=== PATIENT | female | born 1965 | race Caucasian/White ===

== ENCOUNTER 2023-04-29 13:58 | Emergency (ER) | payer OTHER ==
[~2023-04-29] VITALS: Ht 157.5 cm; Wt 83.9 kg
[2023-04-29 14:13] VITALS: BP 155/98; PULSE 70; RESP 18; TEMP 97.6; O2SAT 97
[2023-04-29 14:30] VITALS: O2SAT 97
[2023-04-29] MEDS ORDERED: ONDANSETRON 4 MG ODT PO ONE (14:40)
[2023-04-29 15:26] LABS: BASOPHILS # (AUTO) 0.1 K/uL (0.00-0.22); BASOPHILS % (AUTO) 0.9 % (0.0-2.0); EOSINOPHILS # (AUTO) 0.1 K/uL (0-0.4); EOSINOPHILS % (AUTO) 1.7 % (0.0-4.0); HEMATOCRIT 26.4 % (36-48); LYMPHOCYTES # (AUTO) 1.7 K/uL (2.5-16.5); LYMPHOCYTES % (AUTO) 27.2 % (20.5-51.1); MEAN CORPUSCULAR HEMOGLOBIN 30 pg (27-31); MEAN CORPUSCULAR HGB CONC 34 g/dL (33-37); MEAN CORPUSCULAR VOLUME 89.1 fL (80-94); MONOCYTES # (AUTO) 0.3 K/uL (0.8-1.0); MONOCYTES % (AUTO) 4.9 % (1.7-9.3); NEUTROPHILS # (AUTO) 4.2 K/uL (1.8-7.7); NEUTROPHILS % (AUTO) 65.3 % (42.2-75.2); PLATELET COUNT (AUTO) 356 K/uL (140-450); RED BLOOD CELL COUNT(AUTO) 2.96 MIL/uL (4.20-5.40); WHITE BLOOD COUNT (AUTO) 6.4 K/uL (4.8-10.8)
[2023-04-29] MEDS ORDERED: ONDANSETRON 4 MG TAB ONE (15:47)
[2023-04-29] MEDS ORDERED: DICYCLOMINE 10 MG CAP PO ONE (16:15)
[2023-04-29 16:55] VITALS: O2SAT 98
[2023-04-29 18:31] LABS: LACTIC ACID 0.7 mmol/L (0.4-2.0)
[2023-04-29 19:00] LABS: APPEARANCE,URINE CLEAR (CLEAR); BILIRUBIN,URINE NEGATIVE (NEGATIVE); BLOOD, URINE 1+ (NEGATIVE); COLOR,URINE YELLOW (YELLOW); LEUKOCYTE ESTERASE ,URINE 1+ (NEGATIVE); NITRITE, URINE NEGATIVE (NEGATIVE); PH,URINE 7.5 (5.0-9.0); PROTEIN,URINE 3+ (NEGATIVE); UGLUCOSE 2+ (NEGATIVE); UROBILINOGEN,URINE 0.2 EU/dL (0.2 - 1)
[2023-04-29 19:06] LABS: POTASSIUM 4.5 mmol/L (3.5-5.1)
[2023-04-29 19:07] LABS: ANION GAP 18.7 (8-16); CARBON DIOXIDE 26.8 mmol/L (21-32)
[2023-04-29 19:09] LABS: CREATININE 4.1 mg/dL (0.6-1.3)
[2023-04-29 19:10] LABS: TOTAL BILIRUBIN 0.3 mg/dL (0.0-1.0)
[2023-04-29 19:12] LABS: CALCIUM 7.7 mg/dL (8.5-10.1); TOTAL PROTEIN, SERUM 5.2 g/dL (6.4-8.2)
[2023-04-29 19:47] LABS: BACTERIA,URINE FEW /HPF (None Seen); MUCUS,URINE None Seen /LPF (None Seen); SQUAMOUS EPITHELIAL CELL,UR 0-3 (FEW) /LPF (0-3 (FEW)); TRICHOMONAS,URINE None Seen /HPF (None Seen); WHITE BLOOD CELL CASTS,URINE None Seen /LPF (None Seen); YEAST,URINE None Seen /HPF (None Seen)
[2023-04-29] MEDS ORDERED: TETRACAINE HCL/PF 0.5% OPTH 4 ML BTL OP ONE (20:20)
[2023-04-29] MEDS ORDERED: FLUORESCEIN OPTH STRIP 1 MG OP ONE (20:20)
[2023-04-29] MEDS ORDERED: TOMOMETER 1 DEV DEV MC ONE (21:02)
[2023-04-29] MEDS ORDERED: ACET-10509 PO (21:14)
[2023-04-29] MEDS ORDERED: NITR100C7 PO (21:14)
[2023-04-29] MEDS ORDERED: TOBR5DRO10 RIGHT EYE (21:14)
[2023-04-29 23:29] VITALS: TEMP 97.6
[2023-04-30 07:00] VITALS: BP 143/64; PULSE 78; RESP 18; O2SAT 99
== END 2023-04-29 21:20 | disposition home or self-care (01) ==
LOC: MED 13:58
DX: N39.0 Urinary tract infection, site not specified (principal); H10.9 Unspecified conjunctivitis; E11.22 Type 2 diabetes mellitus with diabetic chronic kidney disease; I12.0 Hypertensive chronic kidney disease with stage 5 chronic kidney disease or end stage renal disease; N18.6 End stage renal disease; Z99.2 Dependence on renal dialysis
CPT/HCPCS: 36415; 71045; 74176; 80053; 81001; 83605; 83880; 84484; 85025; 87040; 87086; 93005; 99285; Q0092; Q0162

== ENCOUNTER 2023-05-09 18:15 | Emergency (ER) | payer OTHER ==
[~2023-05-09] VITALS: Ht 157.5 cm; Wt 65.8 kg
[~2023-05-09 18:15] MED LIST: ACET-10509 PO; NITR100C7 PO; TOBR5DRO10 RIGHT EYE
[2023-05-09 18:42] VITALS: BP 143/99; PULSE 74; RESP 17; TEMP 97.4; O2SAT 98
[2023-05-09] MEDS ORDERED: MORPHINE SULFATE 4 MG/ML SYR IM ONE (19:35)
[2023-05-09 20:03] LABS: BASOPHILS % (AUTO) 0.7 % (0.0-2.0); EOSINOPHILS # (AUTO) 0.2 K/uL (0-0.4); EOSINOPHILS % (AUTO) 3.4 % (0.0-4.0); HEMATOCRIT 25.5 % (36-48); HEMOGLOBIN 8.8 g/dL (12.0-16.0); LYMPHOCYTES # (AUTO) 1.4 K/uL (2.5-16.5); LYMPHOCYTES % (AUTO) 24.5 % (20.5-51.1); MEAN CORPUSCULAR HEMOGLOBIN 31 pg (27-31); MEAN CORPUSCULAR HGB CONC 35 g/dL (33-37); MEAN CORPUSCULAR VOLUME 89.1 fL (80-94); MONOCYTES # (AUTO) 0.3 K/uL (0.8-1.0); MONOCYTES % (AUTO) 5.5 % (1.7-9.3); NEUTROPHILS # (AUTO) 3.7 K/uL (1.8-7.7); NEUTROPHILS % (AUTO) 65.9 % (42.2-75.2); PLATELET COUNT (AUTO) 367 K/uL (140-450); RED BLOOD CELL COUNT(AUTO) 2.86 MIL/uL (4.20-5.40); WHITE BLOOD COUNT (AUTO) 5.6 K/uL (4.8-10.8)
[2023-05-09 20:29] LABS: ALBUMIN 1.9 g/dL (3.4-5.0); ANION GAP 14.6 (8-16); CARBON DIOXIDE 25.1 mmol/L (21-32); POTASSIUM 4.7 mmol/L (3.5-5.1); TOTAL BILIRUBIN 0.3 mg/dL (0.0-1.0); TOTAL PROTEIN, SERUM 4.7 g/dL (6.4-8.2)
[2023-05-09 20:40] LABS: CREATININE 5.5 mg/dL (0.6-1.3)
[2023-05-09] MEDS ORDERED: CETI10CA17 PO (21:49)
[2023-05-09] MEDS ORDERED: PROP10DR4 OP (21:49)
[2023-05-09] MEDS ORDERED: BISM262C53 PO (21:49)
[2023-05-09 22:22] VITALS: BP 134/74; PULSE 70; RESP 18; TEMP 97.4; O2SAT 99
== END 2023-05-09 22:22 | disposition home or self-care (01) ==
LOC: MED 18:15
DX: H10.12 Acute atopic conjunctivitis, left eye (principal); R10.11 Right upper quadrant pain; I12.0 Hypertensive chronic kidney disease with stage 5 chronic kidney disease or end stage renal disease; E11.22 Type 2 diabetes mellitus with diabetic chronic kidney disease; N18.6 End stage renal disease; Z99.2 Dependence on renal dialysis; Z79.4 Long term (current) use of insulin; Z79.899 Other long term (current) drug therapy
CPT/HCPCS: 36415; 70486; 71045; 76705; 80053; 83690; 83880; 85025; 96374; 99285; J2270; Q0092

== ENCOUNTER 2023-05-14 07:48 | Emergency (ER) | payer OTHER ==
[~2023-05-14] VITALS: Ht 160 cm; Wt 79.4 kg
[~2023-05-14 07:48] MED LIST changes: +BISM262C53 PO; +CETI10CA17 PO; +PROP10DR4 OP
[2023-05-14 07:49] VITALS: BP 197/77; PULSE 82; RESP 16; TEMP 97.6; O2SAT 98
[2023-05-14 07:55] VITALS: O2SAT 98
[2023-05-14] MEDS ORDERED: KETOROLAC 60 MG/2 ML VIAL IM ONE (08:15)
[2023-05-14] MEDS ORDERED: ONDANSETRON 4 MG ODT PO ONE (09:15)
[2023-05-14] MEDS ORDERED: MORPHINE SULFATE 4 MG/ML SYR IM ONE ×2 (09:15→12:50)
[2023-05-14 10:01] VITALS: O2SAT 98
[2023-05-14] MEDS ORDERED: LOPE-289 PO (10:27)
[2023-05-14] MEDS ORDERED: CIPR500T4 PO (10:27)
[2023-05-14] MEDS ORDERED: ONDA8TAB87 PO (10:27)
[2023-05-14] MEDS ORDERED: ACET-8905 PO (10:27)
[2023-05-14] MEDS ORDERED: ENALAPRIL 10 MG TAB PO ONE (11:25)
[2023-05-14 12:01] VITALS: O2SAT 98
[2023-05-14 12:59] VITALS: TEMP 97.6
[2023-05-14 13:45] VITALS: BP 170/84; PULSE 72; RESP 16; O2SAT 94
== END 2023-05-14 13:45 | disposition home or self-care (01) ==
LOC: MED 07:48
DX: H57.12 Ocular pain, left eye (principal); R11.2 Nausea with vomiting, unspecified; R10.13 Epigastric pain; R19.7 Diarrhea, unspecified; E11.22 Type 2 diabetes mellitus with diabetic chronic kidney disease; I12.0 Hypertensive chronic kidney disease with stage 5 chronic kidney disease or end stage renal disease; N18.6 End stage renal disease; Z99.2 Dependence on renal dialysis; Z90.49 Acquired absence of other specified parts of digestive tract; Z98.890 Other specified postprocedural states
CPT/HCPCS: 96372; 99284; J1885; J2270; Q0162

== ENCOUNTER 2023-05-19 14:02 | Emergency (ER) | payer OTHER ==
[~2023-05-19] VITALS: Ht 160 cm; Wt 74.8 kg
[~2023-05-19 14:02] MED LIST changes: +ACET-8905 PO; +CIPR500T4 PO; +LOPE-289 PO; +ONDA8TAB87 PO
[2023-05-19 14:13] VITALS: BP 113/57; PULSE 81; RESP 15; TEMP 98.1; O2SAT 91
[2023-05-19 15:19] LABS: BASOPHILS # (AUTO) 0.1 K/uL (0.00-0.22); BASOPHILS % (AUTO) 0.7 % (0.0-2.0); EOSINOPHILS # (AUTO) 0.2 K/uL (0-0.4); EOSINOPHILS % (AUTO) 2.4 % (0.0-4.0); HEMOGLOBIN 9.4 g/dL (12.0-16.0); LYMPHOCYTES # (AUTO) 1.4 K/uL (2.5-16.5); LYMPHOCYTES % (AUTO) 18.6 % (20.5-51.1); MEAN CORPUSCULAR HEMOGLOBIN 30 pg (27-31); MEAN CORPUSCULAR HGB CONC 34 g/dL (33-37); MEAN CORPUSCULAR VOLUME 89.7 fL (80-94); MONOCYTES # (AUTO) 0.4 K/uL (0.8-1.0); MONOCYTES % (AUTO) 5.3 % (1.7-9.3); NEUTROPHILS # (AUTO) 5.6 K/uL (1.8-7.7); PLATELET COUNT (AUTO) 344 K/uL (140-450); RED BLOOD CELL COUNT(AUTO) 3.12 MIL/uL (4.20-5.40); WHITE BLOOD COUNT (AUTO) 7.7 K/uL (4.8-10.8)
[2023-05-19] MEDS ORDERED: HYDROcodone/APAP 5/325 MG 1 TAB TAB PO ONE (15:30)
[2023-05-19 15:35] LABS: ALBUMIN 1.8 g/dL (3.4-5.0); ANION GAP 12.4 (8-16); CALCIUM 7.2 mg/dL (8.5-10.1); CARBON DIOXIDE 29.6 mmol/L (21-32); TOTAL BILIRUBIN 0.3 mg/dL (0.0-1.0); TOTAL PROTEIN, SERUM 4.7 g/dL (6.4-8.2)
[2023-05-19 15:44] LABS: CREATININE 4.3 mg/dL (0.6-1.3)
[2023-05-19] MEDS ORDERED: ACET-9527 PO (15:57)
[2023-05-19] MEDS ORDERED: CILOS LEFT EYE (15:57)
[2023-05-19 16:27] VITALS: BP 120/57; PULSE 68; RESP 16; O2SAT 91
[2023-05-19] MEDS ORDERED: MORPHINE SULFATE 4 MG/ML SYR IM ONE (16:40)
== END 2023-05-19 16:31 ==
LOC: MED 14:02
DX: H05.221 Edema of right orbit (principal); H10.9 Unspecified conjunctivitis; E11.22 Type 2 diabetes mellitus with diabetic chronic kidney disease; I12.0 Hypertensive chronic kidney disease with stage 5 chronic kidney disease or end stage renal disease; N18.6 End stage renal disease; J44.9 Chronic obstructive pulmonary disease, unspecified; E78.5 Hyperlipidemia, unspecified; Z99.2 Dependence on renal dialysis; Z79.899 Other long term (current) drug therapy
CPT/HCPCS: 36415; 71045; 80053; 83690; 83880; 85025; 99284; Q0092

== ENCOUNTER 2023-05-24 17:57 | Emergency (ER) | payer OTHER ==
[~2023-05-24] VITALS: Ht 157.5 cm; Wt 72.6 kg
[~2023-05-24 17:57] MED LIST changes: +ACET-9527 PO; +CILOS LEFT EYE
[2023-05-24 18:22] VITALS: BP 175/85; PULSE 85; RESP 18; TEMP 98.7; O2SAT 98
[2023-05-24] MEDS ORDERED: ONDANSETRON 4 MG/2 ML VIAL IVP ONE (18:35)
[2023-05-24] MEDS ORDERED: MORPHINE SULFATE 4 MG/ML SYR IVP ONE (18:35)
[2023-05-24 19:06] LABS: BASOPHILS # (AUTO) 0.1 K/uL (0.00-0.22); BASOPHILS % (AUTO) 1.1 % (0.0-2.0); EOSINOPHILS # (AUTO) 0.1 K/uL (0-0.4); EOSINOPHILS % (AUTO) 2.4 % (0.0-4.0); HEMATOCRIT 30.5 % (36-48); HEMOGLOBIN 10.5 g/dL (12.0-16.0); LYMPHOCYTES # (AUTO) 1.9 K/uL (2.5-16.5); MEAN CORPUSCULAR HEMOGLOBIN 30 pg (27-31); MEAN CORPUSCULAR HGB CONC 34 g/dL (33-37); MEAN CORPUSCULAR VOLUME 88.5 fL (80-94); MONOCYTES # (AUTO) 0.3 K/uL (0.8-1.0); MONOCYTES % (AUTO) 5.5 % (1.7-9.3); NEUTROPHILS # (AUTO) 3.8 K/uL (1.8-7.7); PLATELET COUNT (AUTO) 405 K/uL (140-450); RED BLOOD CELL COUNT(AUTO) 3.45 MIL/uL (4.20-5.40); RED CELL DISTRIBUTION WIDTH 15.4 % (11.6-13.7); WHITE BLOOD COUNT (AUTO) 6.2 K/uL (4.8-10.8)
[2023-05-24 19:24] VITALS: BP 175/75; PULSE 83; RESP 18; TEMP 98.7; O2SAT 98
[2023-05-24 19:28] LABS: ALBUMIN 2.1 g/dL (3.4-5.0); ANION GAP 11.3 (8-16); CALCIUM 8.1 mg/dL (8.5-10.1); CARBON DIOXIDE 28.4 mmol/L (21-32); CREATININE 2.6 mg/dL (0.6-1.3); POTASSIUM 3.7 mmol/L (3.5-5.1); TOTAL BILIRUBIN 0.4 mg/dL (0.0-1.0); TOTAL PROTEIN, SERUM 5.2 g/dL (6.4-8.2)
[2023-05-24] MEDS ORDERED: ACET-8905 PO (20:29)
== END 2023-05-24 23:21 | disposition home or self-care (01) ==
LOC: MED 17:57
DX: E11.22 Type 2 diabetes mellitus with diabetic chronic kidney disease (principal); I12.0 Hypertensive chronic kidney disease with stage 5 chronic kidney disease or end stage renal disease; N18.6 End stage renal disease; R10.9 Unspecified abdominal pain; Z99.2 Dependence on renal dialysis; J44.9 Chronic obstructive pulmonary disease, unspecified; Z98.890 Other specified postprocedural states; Z79.899 Other long term (current) drug therapy; Z79.2 Long term (current) use of antibiotics
CPT/HCPCS: 36415; 71045; 80053; 83690; 85025; 93005; 96374; 96375; 99285; J2270; J2405

== ENCOUNTER 2023-06-21 19:20 | Emergency (ER) | payer OTHER ==
[~2023-06-21] VITALS: Ht 152.4 cm; Wt 68.0 kg
[2023-06-21 19:24] VITALS: BP 138/69; PULSE 81; RESP 16; TEMP 97.4; O2SAT 97
[2023-06-21 20:30] LABS: BASOPHILS # (AUTO) 0.1 K/uL (0.00-0.22); EOSINOPHILS # (AUTO) 0.1 K/uL (0-0.4); EOSINOPHILS % (AUTO) 1.7 % (0.0-4.0); HEMATOCRIT 35.8 % (36-48); HEMOGLOBIN 12.2 g/dL (12.0-16.0); LYMPHOCYTES % (AUTO) 36.2 % (20.5-51.1); MEAN CORPUSCULAR HEMOGLOBIN 31 pg (27-31); MEAN CORPUSCULAR HGB CONC 34 g/dL (33-37); MEAN CORPUSCULAR VOLUME 89.8 fL (80-94); MONOCYTES # (AUTO) 0.3 K/uL (0.8-1.0); MONOCYTES % (AUTO) 5.6 % (1.7-9.3); NEUTROPHILS % (AUTO) 55.5 % (42.2-75.2); PLATELET COUNT (AUTO) 358 K/uL (140-450); RED BLOOD CELL COUNT(AUTO) 3.99 MIL/uL (4.20-5.40); RED CELL DISTRIBUTION WIDTH 16.1 % (11.6-13.7); WHITE BLOOD COUNT (AUTO) 5.4 K/uL (4.8-10.8)
[2023-06-21 20:42] LABS: ALBUMIN 1.9 g/dL (3.4-5.0); ANION GAP 9.1 (8-16); CALCIUM 7.3 mg/dL (8.5-10.1); CARBON DIOXIDE 33.2 mmol/L (21-32); CREATININE 2.6 mg/dL (0.6-1.3); POTASSIUM 3.3 mmol/L (3.5-5.1); TOTAL BILIRUBIN 0.4 mg/dL (0.0-1.0); TOTAL PROTEIN, SERUM 4.7 g/dL (6.4-8.2)
[2023-06-21] MEDS ORDERED: SULF-59 PO (22:48)
[2023-06-21] MEDS ORDERED: CEFD300C3 PO (22:48)
[2023-06-22 00:15] VITALS: BP 138/70; PULSE 80; RESP 16; TEMP 97.4; O2SAT 95
== END 2023-06-22 00:15 | disposition home or self-care (01) ==
LOC: MED 19:20
DX: H00.034 Abscess of left upper eyelid (principal); I12.0 Hypertensive chronic kidney disease with stage 5 chronic kidney disease or end stage renal disease; E11.22 Type 2 diabetes mellitus with diabetic chronic kidney disease; N18.6 End stage renal disease; J44.9 Chronic obstructive pulmonary disease, unspecified; Z79.4 Long term (current) use of insulin; Z79.899 Other long term (current) drug therapy
CPT/HCPCS: 36415; 70481; 80053; 83605; 85025; 87040; 99285; Q9967

== ENCOUNTER 2023-06-27 20:20 | Inpatient (IN) | payer OTHER ==
[~2023-06-27] VITALS: Ht 152.4 cm; Wt 57.6 kg
[~2023-06-27 20:20] MED LIST changes: +CEFD300C3 PO; +SULF-59 PO
[2023-06-27 20:30] VITALS: BP 144/94; PULSE 92; RESP 16; TEMP 97.7; O2SAT 95
[2023-06-27] MEDS ORDERED: DEXTROSE 50% 50 ML SYR IVP ONE (20:42)
[2023-06-27 21:17] LABS: BASOPHILS # (AUTO) 0.1 K/uL (0.00-0.22); BASOPHILS % (AUTO) 1.3 % (0.0-2.0); EOSINOPHILS # (AUTO) 0.1 K/uL (0-0.4); EOSINOPHILS % (AUTO) 1.5 % (0.0-4.0); HEMATOCRIT 36.2 % (36-48); HEMOGLOBIN 12.3 g/dL (12.0-16.0); LYMPHOCYTES # (AUTO) 1.5 K/uL (2.5-16.5); LYMPHOCYTES % (AUTO) 35.2 % (20.5-51.1); MEAN CORPUSCULAR HEMOGLOBIN 30 pg (27-31); MEAN CORPUSCULAR HGB CONC 34 g/dL (33-37); MEAN CORPUSCULAR VOLUME 89.4 fL (80-94); MONOCYTES # (AUTO) 0.2 K/uL (0.8-1.0); MONOCYTES % (AUTO) 5.9 % (1.7-9.3); NEUTROPHILS # (AUTO) 2.4 K/uL (1.8-7.7); NEUTROPHILS % (AUTO) 56.1 % (42.2-75.2); PLATELET COUNT (AUTO) 337 K/uL (140-450); RED BLOOD CELL COUNT(AUTO) 4.05 MIL/uL (4.20-5.40); RED CELL DISTRIBUTION WIDTH 15.3 % (11.6-13.7); WHITE BLOOD COUNT (AUTO) 4.2 K/uL (4.8-10.8)
[2023-06-27 21:40] LABS: ALANINE AMINOTRANSFERASE 9 U/L (12-78); ALBUMIN 1.7 g/dL (3.4-5.0); ALKALINE PHOSPHATASE 83 U/L (50-136); ANION GAP 10.5 (8-16); ASPARTATE AMINOTRANSFERASE 18 U/L (15-37); CALCIUM 7.6 mg/dL (8.5-10.1); CARBON DIOXIDE 32.5 mmol/L (21-32); CHLORIDE 103 mmol/L (98-107); GFR ARICAN-AMERICAN 33 mL/min (>90); GFR NON ARICAN-AMERICAN 27 mL/min (>90); GLUCOSE 55 mg/dL (74-106); MAGNESIUM 1.7 mg/dL (1.8-2.4); PHOSPHORUS 2.3 mg/dL (2.5-4.9); SODIUM SERUM 143 mmol/L (136-145); TOTAL BILIRUBIN 0.5 mg/dL (0.0-1.0); TOTAL PROTEIN, SERUM 4.5 g/dL (6.4-8.2); UREA NITROGEN, BLOOD 9 mg/dL (7-18)
[2023-06-28 00:01] LABS: FLU A ANTIGEN negative (NEGATIVE); FLU B ANTIGEN NEGATIVE (NEGATIVE)
[2023-06-28] MEDS ORDERED: ACETAMINOPHEN EXTRA STRENGTH 500 MG TAB PO ONE (00:10)
[2023-06-28 00:24] LABS: APPEARANCE,URINE CLOUDY (CLEAR); BILIRUBIN,URINE NEGATIVE (NEGATIVE); BLOOD, URINE 1+ (NEGATIVE); COLOR,URINE YELLOW (YELLOW); LEUKOCYTE ESTERASE ,URINE 1+ (NEGATIVE); NITRITE, URINE NEGATIVE (NEGATIVE); PH,URINE 7.5 (5.0-9.0); PROTEIN,URINE 3+ (NEGATIVE); UGLUCOSE NEGATIVE (NEGATIVE); UROBILINOGEN,URINE 0.2 EU/dL (0.2 - 1)
[2023-06-28 00:30] LABS: WBC,URINE TOO MANY TO COUNT /HPF (0-5)
[2023-06-28 00:31] LABS: BACTERIA,URINE >30 (MANY) /HPF (None Seen); MUCUS,URINE 1+ /LPF (None Seen); SQUAMOUS EPITHELIAL CELL,UR 0-3 (FEW) /LPF (0-3 (FEW))
[2023-06-28] MEDS ORDERED: ZOLPIDEM 5 MG TAB PO PRN (01:20)
[2023-06-28] MEDS ORDERED: MAG SULF 2000 MG/WATER PREMIX 50 ML IV PRN (01:20)
[2023-06-28] MEDS ORDERED: HYDROcodone/APAP 5/325 MG 1 TAB TAB PO PRN (01:20)
[2023-06-28] MEDS ORDERED: POTASSIUM CHLORIDE 10 MEQ TABER PO PRN (01:20)
[2023-06-28] MEDS ORDERED: LORazepam 1 MG TAB PO PRN (01:20)
[2023-06-28] MEDS ORDERED: MORPHINE SULFATE 4 MG/ML SYR IVP PRN (01:20)
[2023-06-28] MEDS ORDERED: ONDANSETRON 4 MG/2 ML VIAL IVP PRN (01:20)
[2023-06-28] MEDS ORDERED: cefTRIAXone 1,000 MG VIAL ONE (01:30)
[2023-06-28] MEDS ORDERED: KCL 20 MEQ IN 100 mL PREMIX 200 ML IV ONE (02:04)
[2023-06-28] MEDS: KCL 20 MEQ IN 100 mL PREMIX 200 ML IV PRN ×2 (02:27→05:51)
[2023-06-28 03:20] VITALS: PULSE 83; RESP 18; O2SAT 96
[2023-06-28 04:00] VITALS: BP 147/84; PULSE 83; RESP 18; TEMP 97.9; O2SAT 96
[2023-06-28] MEDS: NACL 0.9% 1,000 ML IV SCH ×2 (04:25→17:06)
[2023-06-28 08:15] VITALS: BP 193/98; PULSE 89; RESP 18; TEMP 98.6; O2SAT 98
[2023-06-28] MEDS: hydrALAZINE 20 MG/ML VIAL IVP PRN ×4 (11:44→17:25)
[2023-06-28 15:33] LABS: ANION GAP 10.9 (8-16); CALCIUM 7.5 mg/dL (8.5-10.1); CARBON DIOXIDE 29.8 mmol/L (21-32); CREATININE 2.7 mg/dL (0.6-1.3); POTASSIUM 3.7 mmol/L (3.5-5.1)
[2023-06-28 16:00] VITALS: BP 209/108; PULSE 69; RESP 18; TEMP 97.3; O2SAT 96
[2023-06-28 20:00] VITALS: BP 199/102; PULSE 95; RESP 18; TEMP 97.5; O2SAT 96
[2023-06-28] MEDS ORDERED: hydrALAZINE 20 MG/ML VIAL IVP PRN (20:50)
[2023-06-28] MEDS: LABETALOL 200 MG TAB PO SCH (23:28)
[2023-06-29 04:00] VITALS: BP 156/77; PULSE 99; RESP 18; TEMP 98.3; O2SAT 96
[2023-06-29] MEDS: hydrALAZINE 20 MG/ML VIAL IVP PRN (05:53)
[2023-06-29 06:46] LABS: BASOPHILS # (AUTO) 0.1 K/uL (0.00-0.22); BASOPHILS % (AUTO) 1.1 % (0.0-2.0); EOSINOPHILS # (AUTO) 0.1 K/uL (0-0.4); EOSINOPHILS % (AUTO) 1.6 % (0.0-4.0); HEMOGLOBIN 12.3 g/dL (12.0-16.0); LYMPHOCYTES # (AUTO) 1.9 K/uL (2.5-16.5); LYMPHOCYTES % (AUTO) 34.8 % (20.5-51.1); MEAN CORPUSCULAR HEMOGLOBIN 30 pg (27-31); MEAN CORPUSCULAR HGB CONC 33 g/dL (33-37); MEAN CORPUSCULAR VOLUME 89.8 fL (80-94); MONOCYTES # (AUTO) 0.4 K/uL (0.8-1.0); MONOCYTES % (AUTO) 6.7 % (1.7-9.3); NEUTROPHILS % (AUTO) 55.8 % (42.2-75.2); PLATELET COUNT (AUTO) 356 K/uL (140-450); RED BLOOD CELL COUNT(AUTO) 4.12 MIL/uL (4.20-5.40); RED CELL DISTRIBUTION WIDTH 15.7 % (11.6-13.7); WHITE BLOOD COUNT (AUTO) 5.4 K/uL (4.8-10.8)
[2023-06-29 06:57] LABS: ANION GAP 9.6 (8-16); CALCIUM 7.9 mg/dL (8.5-10.1); POTASSIUM 3.6 mmol/L (3.5-5.1)
[2023-06-29] MEDS: LABETALOL 200 MG TAB PO SCH ×2 (08:44→20:09)
[2023-06-29 09:10] VITALS: PULSE 95; RESP 18; O2SAT 96
[2023-06-29] MEDS ORDERED: DEXTROSE 50% 50 ML SYR IVP PRN (09:30)
[2023-06-29] MEDS ORDERED: INSULIN LISPRO SLIDING SCALE 100 UNITS/ML VIAL SUBQ PRN (09:30)
[2023-06-29] MEDS: BLOOD GLUCOSE MONITORING 1 DEV DEV FS SCH ×3 (11:25→20:17)
[2023-06-29 16:30] VITALS: BP 127/71; PULSE 83; RESP 18; TEMP 97.8; O2SAT 96
[2023-06-29 20:00] VITALS: BP 158/78; PULSE 96; RESP 18; TEMP 97.5; O2SAT 96
[2023-06-29] MEDS: ACETAMINOPHEN 325 MG TAB PO PRN (20:09)
[2023-06-30 04:00] VITALS: BP 161/76; PULSE 81; RESP 18; TEMP 97.8; O2SAT 96
[2023-06-30] MEDS: ACETAMINOPHEN 325 MG TAB PO PRN (04:14)
[2023-06-30] MEDS: hydrALAZINE 20 MG/ML VIAL IVP PRN (05:25)
[2023-06-30] MEDS: BLOOD GLUCOSE MONITORING 1 DEV DEV FS SCH ×3 (06:37→16:13)
[2023-06-30 06:48] LABS: EOSINOPHILS # (AUTO) 0.1 K/uL (0-0.4); EOSINOPHILS % (AUTO) 1.9 % (0.0-4.0); HEMATOCRIT 38.3 % (36-48); HEMOGLOBIN 12.8 g/dL (12.0-16.0); LYMPHOCYTES # (AUTO) 1.4 K/uL (2.5-16.5); LYMPHOCYTES % (AUTO) 33.6 % (20.5-51.1); MEAN CORPUSCULAR HEMOGLOBIN 30 pg (27-31); MEAN CORPUSCULAR HGB CONC 34 g/dL (33-37); MEAN CORPUSCULAR VOLUME 90.4 fL (80-94); MONOCYTES # (AUTO) 0.2 K/uL (0.8-1.0); MONOCYTES % (AUTO) 5.6 % (1.7-9.3); NEUTROPHILS # (AUTO) 2.5 K/uL (1.8-7.7); NEUTROPHILS % (AUTO) 57.9 % (42.2-75.2); PLATELET COUNT (AUTO) 328 K/uL (140-450); RED BLOOD CELL COUNT(AUTO) 4.23 MIL/uL (4.20-5.40); RED CELL DISTRIBUTION WIDTH 15.1 % (11.6-13.7); WHITE BLOOD COUNT (AUTO) 4.3 K/uL (4.8-10.8)
[2023-06-30 07:01] LABS: ANION GAP 10.3 (8-16); CALCIUM 7.9 mg/dL (8.5-10.1); CARBON DIOXIDE 29.3 mmol/L (21-32); CREATININE 2.7 mg/dL (0.6-1.3); POTASSIUM 3.6 mmol/L (3.5-5.1)
[2023-06-30 08:13] VITALS: BP 128/65; PULSE 92; RESP 18; TEMP 97.2; O2SAT 96; O2SAT 97
[2023-06-30] MEDS: LABETALOL 200 MG TAB PO SCH (08:37)
[2023-06-30] MEDS ORDERED: MAG SULF 2000 MG/WATER PREMIX 50 ML IV SCH (09:00)
[2023-06-30 15:37] VITALS: BP 143/73; PULSE 80; RESP 18; TEMP 97.4; O2SAT 97
== END 2023-06-30 18:56 | DRG 199 ==
LOC: MED 20:20 → MMU 06-28 01:23 → OBSVTOIN 06-28 01:23 → MTU 06-28 01:32
PROVIDERS: ADMIT Hospitalist; ATTEND Hospitalist
DX: I16.0 Hypertensive urgency (principal); I67.4 Hypertensive encephalopathy; E44.0 Moderate protein-calorie malnutrition; E11.649 Type 2 diabetes mellitus with hypoglycemia without coma; E11.22 Type 2 diabetes mellitus with diabetic chronic kidney disease; N39.0 Urinary tract infection, site not specified; K52.9 Noninfective gastroenteritis and colitis, unspecified; Z20.822 Contact with and (suspected) exposure to COVID-19; N18.9 Chronic kidney disease, unspecified; Z79.1 Long term (current) use of non-steroidal anti-inflammatories (NSAID); Z79.899 Other long term (current) drug therapy; Z90.49 Acquired absence of other specified parts of digestive tract; Z68.24 Body mass index [BMI] 24.0-24.9, adult
CPT/HCPCS: 36415; 71045; 80048; 80053; 81001; 82948; 83036; 83735; 84100; 84484; 85025; 87081; 87086; 93005; 96374; 97116; 97163-GP; 99285; J0360; J0696; J1644; J1815; J2270; J2405; J3475; J3480; J7060

== ENCOUNTER 2023-10-20 01:30 | Inpatient (IN) | payer OTHER ==
[~2023-10-20] VITALS: Ht 162.6 cm; Wt 54.4 kg
[2023-10-20] VITALS (11 sets, daily range): BP systolic 90–186; BP diastolic 51–108; PULSE 82–137; RESP 18–22; TEMP 97–98.9; O2SAT 94–99
[2023-10-20 02:23] LABS: BASOPHILS % (AUTO) 0.6 % (0.0-2.0); EOSINOPHILS # (AUTO) 0.2 K/uL (0-0.4); EOSINOPHILS % (AUTO) 2.2 % (0.0-4.0); HEMATOCRIT 32.4 % (36-48); HEMOGLOBIN 11.1 g/dL (12.0-16.0); LYMPHOCYTES # (AUTO) 1.1 K/uL (2.5-16.5); LYMPHOCYTES % (AUTO) 15.4 % (20.5-51.1); MEAN CORPUSCULAR HEMOGLOBIN 32 pg (27-31); MEAN CORPUSCULAR HGB CONC 34 g/dL (33-37); MEAN CORPUSCULAR VOLUME 92.7 fL (80-94); MONOCYTES # (AUTO) 0.3 K/uL (0.8-1.0); MONOCYTES % (AUTO) 4.4 % (1.7-9.3); NEUTROPHILS # (AUTO) 5.5 K/uL (1.8-7.7); NEUTROPHILS % (AUTO) 77.4 % (42.2-75.2); PLATELET COUNT (AUTO) 320 K/uL (140-450); RED CELL DISTRIBUTION WIDTH 15.2 % (11.6-13.7); WHITE BLOOD COUNT (AUTO) 7.1 K/uL (4.8-10.8)
[2023-10-20] MEDS ORDERED: AZITHROMYCIN 500 MG INJ VIAL IV ONE (02:44)
[2023-10-20] MEDS ORDERED: cefTRIAXone 1,000 MG VIAL ONE (02:44)
[2023-10-20 02:53] LABS: LACTIC ACID 0.6 mmol/L (0.4-2.0)
[2023-10-20 02:59] LABS: ANION GAP 17.4 (8-16); CALCIUM 9.5 mg/dL (8.5-10.1); CARBON DIOXIDE 26.3 mmol/L (21-32); POTASSIUM 5.7 mmol/L (3.5-5.1)
[2023-10-20 03:02] LABS: ALBUMIN 2.8 g/dL (3.4-5.0); BILIRUBIN,DIRECT 0.2 mg/dL (0.0-0.3); TOTAL BILIRUBIN 0.4 mg/dL (0.0-1.0)
[2023-10-20] MEDS: ACETAMINOPHEN EXTRA STRENGTH 500 MG TAB PO ONE (03:05)
[2023-10-20] MEDS: AZITHROMYCIN 500 MG in DEXTROSE 5% 250 ML IV ONE (03:09)
[2023-10-20] MEDS: ONDANSETRON 4 MG/2 ML VIAL IVP ONE (03:29)
[2023-10-20] MEDS: NACL 0.9% 200 ML IV ONE (03:55)
[2023-10-20] MEDS: hydrALAZINE 20 MG/ML VIAL IVP ONE (04:02)
[2023-10-20] MEDS: MORPHINE SULFATE 4 MG/ML SYR IVP ONE (04:46)
[2023-10-20] MEDS: LABETALOL 20 MG/4 ML VIAL IVP ONE (04:47)
[2023-10-20] MEDS ORDERED: MORPHINE SULFATE 4 MG/ML SYR IVP PRN (05:45)
[2023-10-20] MEDS ORDERED: ONDANSETRON 4 MG/2 ML VIAL IVP PRN (05:45)
[2023-10-20] MEDS: ACETAMINOPHEN 325 MG TAB PO PRN (07:42)
[2023-10-20] MEDS ORDERED: FURO-572 PO (08:08)
[2023-10-20] MEDS ORDERED: ATOR40TA PO (08:08)
[2023-10-20] MEDS ORDERED: ONDA-188 PO (08:08)
[2023-10-20] MEDS ORDERED: CARV25TA PO (08:08)
[2023-10-20] MEDS ORDERED: BISA-28 PO (08:08)
[2023-10-20] MEDS ORDERED: BUME1TAB PO (08:08)
[2023-10-20] MEDS ORDERED: NIFE60TA39 PO (08:08)
[2023-10-20] MEDS: hydrALAZINE 25 MG TAB PO PRN (09:05)
[2023-10-20] MEDS: HYDROcodone/APAP 5/325 MG 1 TAB TAB PO PRN (10:10)
[2023-10-20] MEDS: CLONIDINE HYDROCHLORIDE 0.1 MG TAB ONE (10:31)
[2023-10-20] MEDS: diphenhydrAMINE 50 MG/ML VIAL IVP SCH (10:32)
[2023-10-20] MEDS: DIGOXIN 0.25 MG/ML AMP IV SCH ×2 (14:23→19:47)
[2023-10-20] MEDS: METOPROLOL 50 MG TAB PO SCH (14:24)
[2023-10-20] MEDS: BLOOD GLUCOSE MONITORING 1 DEV DEV FS SCH (15:55)
[2023-10-20] MEDS: INSULIN LISPRO SLIDING SCALE 100 UNITS/ML VIAL SUBQ PRN (15:55)
[2023-10-20] MEDS: DEXTROSE 50% 50 ML SYR IVP PRN (21:00)
[2023-10-20] MEDS: APIXABAN 2.5 MG TAB PO SCH (22:04)
[2023-10-20] MEDS: CLONIDINE HYDROCHLORIDE 0.1 MG TAB PO PRN (22:11)
[2023-10-21] VITALS (18 sets, daily range): BP systolic 156–249; BP diastolic 61–160; PULSE 73–88; RESP 18–20; TEMP 97–98.1; O2SAT 95–99
[2023-10-21] MEDS: DIGOXIN 0.25 MG/ML AMP IV SCH (01:14)
[2023-10-21 07:00] LABS: BASOPHILS % (AUTO) 0.6 % (0.0-2.0); EOSINOPHILS # (AUTO) 0.1 K/uL (0-0.4); EOSINOPHILS % (AUTO) 1.9 % (0.0-4.0); HEMATOCRIT 30.5 % (36-48); HEMOGLOBIN 10.5 g/dL (12.0-16.0); LYMPHOCYTES # (AUTO) 1.1 K/uL (2.5-16.5); LYMPHOCYTES % (AUTO) 16.2 % (20.5-51.1); MEAN CORPUSCULAR HEMOGLOBIN 32 pg (27-31); MEAN CORPUSCULAR HGB CONC 34 g/dL (33-37); MEAN CORPUSCULAR VOLUME 92.4 fL (80-94); MONOCYTES # (AUTO) 0.3 K/uL (0.8-1.0); MONOCYTES % (AUTO) 5.2 % (1.7-9.3); NEUTROPHILS % (AUTO) 76.1 % (42.2-75.2); PLATELET COUNT (AUTO) 268 K/uL (140-450); RED CELL DISTRIBUTION WIDTH 15.1 % (11.6-13.7); WHITE BLOOD COUNT (AUTO) 6.5 K/uL (4.8-10.8)
[2023-10-21 07:20] LABS: ALBUMIN 2.5 g/dL (3.4-5.0); ANION GAP 18.6 (8-16); CALCIUM 8.6 mg/dL (8.5-10.1); CARBON DIOXIDE 26.7 mmol/L (21-32); POTASSIUM 5.3 mmol/L (3.5-5.1); TOTAL BILIRUBIN 0.5 mg/dL (0.0-1.0); TOTAL PROTEIN, SERUM 6.8 g/dL (6.4-8.2)
[2023-10-21 07:23] LABS: CREATININE 4.4 mg/dL (0.6-1.3)
[2023-10-21] MEDS: NIFEdipine 60 MG TABER PO SCH ×2 (07:32→20:11)
[2023-10-21] MEDS: LABETALOL 20 MG/4 ML VIAL IVP PRN (07:33)
[2023-10-21] MEDS: ATORVASTATIN 20 MG TAB PO SCH (08:19)
[2023-10-21] MEDS: AZITHROMYCIN 500 MG in DEXTROSE 5% 250 ML IV SCH (08:20)
[2023-10-21] MEDS ORDERED: LABETALOL 20 MG/4 ML VIAL IVP PRN (15:30)
[2023-10-21] MEDS: carvediloL 12.5 MG TAB PO ONE (16:07)
[2023-10-21] MEDS: hydrALAZINE 20 MG/ML VIAL IVP PRN (18:06)
[2023-10-21] MEDS: carvediloL 12.5 MG TAB PO SCH (20:12)
[2023-10-22] VITALS (13 sets, daily range): BP systolic 127–155; BP diastolic 52–62; PULSE 64–77; RESP 16–18; TEMP 98–99.2; O2SAT 95–98
[2023-10-22 06:06] LABS: BASOPHILS % (AUTO) 0.5 % (0.0-2.0); EOSINOPHILS # (AUTO) 0.3 K/uL (0-0.4); EOSINOPHILS % (AUTO) 4.4 % (0.0-4.0); HEMATOCRIT 27.2 % (36-48); HEMOGLOBIN 9.5 g/dL (12.0-16.0); LYMPHOCYTES # (AUTO) 1.3 K/uL (2.5-16.5); MEAN CORPUSCULAR HEMOGLOBIN 32 pg (27-31); MEAN CORPUSCULAR HGB CONC 35 g/dL (33-37); MEAN CORPUSCULAR VOLUME 91.9 fL (80-94); MONOCYTES # (AUTO) 0.5 K/uL (0.8-1.0); MONOCYTES % (AUTO) 7.3 % (1.7-9.3); NEUTROPHILS # (AUTO) 4.2 K/uL (1.8-7.7); NEUTROPHILS % (AUTO) 66.8 % (42.2-75.2); PLATELET COUNT (AUTO) 271 K/uL (140-450); RED BLOOD CELL COUNT(AUTO) 2.96 MIL/uL (4.20-5.40); RED CELL DISTRIBUTION WIDTH 14.6 % (11.6-13.7); WHITE BLOOD COUNT (AUTO) 6.3 K/uL (4.8-10.8)
[2023-10-22 06:30] LABS: ALBUMIN 2.5 g/dL (3.4-5.0); ANION GAP 15.9 (8-16); CALCIUM 8.6 mg/dL (8.5-10.1); CARBON DIOXIDE 24.8 mmol/L (21-32); CREATININE 3.6 mg/dL (0.6-1.3); POTASSIUM 4.7 mmol/L (3.5-5.1); TOTAL BILIRUBIN 0.5 mg/dL (0.0-1.0); TOTAL PROTEIN, SERUM 6.1 g/dL (6.4-8.2)
[2023-10-22] MEDS: LOSARTAN 25 MG TAB PO SCH (10:29)
[2023-10-22] MEDS ORDERED: LOSA-269 PO (15:29)
[2023-10-22] MEDS ORDERED: APIX2.5 PO (15:29)
== END 2023-10-22 20:24 | disposition home or self-care (01) | DRG 720 ==
LOC: MED 01:30 → MTU 05:45
PROVIDERS: ADMIT Hospitalist; ATTEND Hospitalist
PROC: 5A1D70Z Performance of Urinary Filtration, Intermittent, Less than 6 Hours Per Day (ICD-10-PCS; principal; 2023-10-20)
PROC: 5A1D70Z Performance of Urinary Filtration, Intermittent, Less than 6 Hours Per Day (ICD-10-PCS; 2023-10-21)
DX: A41.9 Sepsis, unspecified organism (principal); J96.01 Acute respiratory failure with hypoxia; I50.31 Acute diastolic (congestive) heart failure; J18.9 Pneumonia, unspecified organism; N18.6 End stage renal disease; E44.0 Moderate protein-calorie malnutrition; D63.1 Anemia in chronic kidney disease; E11.21 Type 2 diabetes mellitus with diabetic nephropathy; I50.9 Heart failure, unspecified; I13.2 Hypertensive heart and chronic kidney disease with heart failure and with stage 5 chronic kidney disease, or end stage renal disease; I16.1 Hypertensive emergency; E87.5 Hyperkalemia; I48.91 Unspecified atrial fibrillation; E87.70 Fluid overload, unspecified; E11.22 Type 2 diabetes mellitus with diabetic chronic kidney disease; Z68.20 Body mass index [BMI] 20.0-20.9, adult; Z99.2 Dependence on renal dialysis; Z79.899 Other long term (current) drug therapy
CPT/HCPCS: 36415; 70450; 71045; 80048; 80053; 80076; 82948; 83605; 83735; 83880; 85025; 87040; 87081; 93005; 96365; 96367; 96375; 97163-GP; 97530; 99285; J0360; J0456; J0696; J1160; J1200; J1644; J1815; J2270; J2405; J3490; J7060; Q0092

== ENCOUNTER 2023-11-18 20:29 | Emergency (ER) | payer OTHER ==
[~2023-11-18] VITALS: Ht 157.5 cm; Wt 61.2 kg
[~2023-11-18 20:29] MED LIST changes: -ACET-8905 PO; -ACET-9527 PO; +APIX2.5 PO; +ATOR40TA PO; +BISA-28 PO; +BUME1TAB PO; +CARV25TA PO; -CILOS LEFT EYE; -CIPR500T4 PO; +LOSA-269 PO; +NIFE60TA39 PO; -NITR100C7 PO; +ONDA-188 PO; -SULF-59 PO
[2023-11-18 20:37] VITALS: BP 201/89; PULSE 89; RESP 16; TEMP 98; O2SAT 97
[2023-11-19 03:03] LABS: ALBUMIN 3.1 g/dL (3.4-5.0); ANION GAP 10.8 (8-16); CALCIUM 8.2 mg/dL (8.5-10.1); POTASSIUM 4.8 mmol/L (3.5-5.1); TOTAL BILIRUBIN 0.5 mg/dL (0.0-1.0); TOTAL PROTEIN, SERUM 7.4 g/dL (6.4-8.2)
[2023-11-19] MEDS: NACL 0.9% 1,000 ML IV ONE (03:03)
[2023-11-19 03:28] LABS: CREATININE 4.2 mg/dL (0.6-1.3)
[2023-11-19 03:30] LABS: BASOPHILS % (AUTO) 0.7 % (0.0-2.0); EOSINOPHILS # (AUTO) 0.1 K/uL (0-0.4); EOSINOPHILS % (AUTO) 2.7 % (0.0-4.0); HEMATOCRIT 22.8 % (36-48); HEMOGLOBIN 8.2 g/dL (12.0-16.0); LYMPHOCYTES # (AUTO) 0.9 K/uL (2.5-16.5); LYMPHOCYTES % (AUTO) 21.7 % (20.5-51.1); MEAN CORPUSCULAR HEMOGLOBIN 32 pg (27-31); MEAN CORPUSCULAR HGB CONC 36 g/dL (33-37); MEAN CORPUSCULAR VOLUME 88.5 fL (80-94); MONOCYTES # (AUTO) 0.3 K/uL (0.8-1.0); MONOCYTES % (AUTO) 7.4 % (1.7-9.3); NEUTROPHILS # (AUTO) 2.9 K/uL (1.8-7.7); NEUTROPHILS % (AUTO) 67.5 % (42.2-75.2); PLATELET COUNT (AUTO) 365 K/uL (140-450); RED BLOOD CELL COUNT(AUTO) 2.58 MIL/uL (4.20-5.40); RED CELL DISTRIBUTION WIDTH 14.6 % (11.6-13.7); WHITE BLOOD COUNT (AUTO) 4.2 K/uL (4.8-10.8)
[2023-11-19 04:39] LABS: APPEARANCE,URINE CLEAR (CLEAR); BILIRUBIN,URINE NEGATIVE (NEGATIVE); BLOOD, URINE 1+ (NEGATIVE); COLOR,URINE YELLOW (YELLOW); LEUKOCYTE ESTERASE ,URINE NEGATIVE (NEGATIVE); NITRITE, URINE NEGATIVE (NEGATIVE); PH,URINE 7.5 (5.0-9.0); PROTEIN,URINE 3+ (NEGATIVE); UGLUCOSE 1+ (NEGATIVE); UROBILINOGEN,URINE 0.2 EU/dL (0.2 - 1)
[2023-11-19 04:56] LABS: BACTERIA,URINE 1+ /HPF (None Seen); SQUAMOUS EPITHELIAL CELL,UR 4-10 (MOD) /LPF (0-3 (FEW))
[2023-11-19] MEDS ORDERED: hydrALAZINE 20 MG/ML VIAL ONE (05:39)
[2023-11-19] MEDS ORDERED: NITR100C7 PO (05:48)
[2023-11-19] MEDS: hydrALAZINE 20 MG/ML VIAL IVP STA (06:02)
[2023-11-19] MEDS: NIFEdipine 30 MG TABER PO ONE (10:37)
[2023-11-19] MEDS: carvediloL 6.25 MG TAB PO ONE (10:44)
[2023-11-19] MEDS: hydrALAZINE 20 MG/ML VIAL IVP ONE (10:49)
[2023-11-19 11:52] VITALS: TEMP 97.9
[2023-11-19 12:13] VITALS: BP 167/74; PULSE 70; RESP 20; O2SAT 97
== END 2023-11-19 12:13 ==
LOC: MED 20:29
DX: R10.84 Generalized abdominal pain (principal); R53.1 Weakness; J44.9 Chronic obstructive pulmonary disease, unspecified; I12.9 Hypertensive chronic kidney disease with stage 1 through stage 4 chronic kidney disease, or unspecified chronic kidney disease; E11.22 Type 2 diabetes mellitus with diabetic chronic kidney disease; N18.6 End stage renal disease; Z99.2 Dependence on renal dialysis; Z79.4 Long term (current) use of insulin; Z79.899 Other long term (current) drug therapy
CPT/HCPCS: 36415; 71045; 80053; 81001; 84484; 85025; 87086; 93005; 96361; 96374; 96376; 99285; J0360; J7030; Q0092

== ENCOUNTER 2024-02-12 20:33 | Observation (INO) | payer OTHER ==
[~2024-02-12] VITALS: Ht 160 cm; Wt 54.4 kg
[~2024-02-12 20:33] MED LIST changes: +NITR100C7 PO
[2024-02-12 20:39] VITALS: BP 198/83; PULSE 76; RESP 12; TEMP 96.6; O2SAT 98
[2024-02-12] MEDS ORDERED: cefTRIAXone 1,000 MG VIAL ONE (21:15)
[2024-02-12] MEDS: cefTRIAXone 1,000 MG in DEXT 5% MINI-BAG PLUS 50 ML IV ONE (21:29)
[2024-02-12 21:39] LABS: BASOPHILS % (AUTO) 0.2 % (0.0-2.0); EOSINOPHILS # (AUTO) 0.1 K/uL (0-0.4); EOSINOPHILS % (AUTO) 1.1 % (0.0-4.0); HEMATOCRIT 29.5 % (36-48); HEMOGLOBIN 10.3 g/dL (12.0-16.0); LYMPHOCYTES # (AUTO) 0.8 K/uL (2.5-16.5); LYMPHOCYTES % (AUTO) 7.7 % (20.5-51.1); MEAN CORPUSCULAR HEMOGLOBIN 32 pg (27-31); MEAN CORPUSCULAR HGB CONC 35 g/dL (33-37); MONOCYTES # (AUTO) 0.3 K/uL (0.8-1.0); NEUTROPHILS # (AUTO) 8.9 K/uL (1.8-7.7); PLATELET COUNT (AUTO) 433 K/uL (140-450); RED CELL DISTRIBUTION WIDTH 15.3 % (11.6-13.7); WHITE BLOOD COUNT (AUTO) 10.1 K/uL (4.8-10.8)
[2024-02-12 21:53] LABS: FLU A ANTIGEN negative (NEGATIVE); FLU B ANTIGEN NEGATIVE (NEGATIVE)
[2024-02-12 21:53] LABS: ANION GAP 18.5 (8-16); CALCIUM 9.3 mg/dL (8.5-10.1); CARBON DIOXIDE 24.1 mmol/L (21-32); POTASSIUM 4.6 mmol/L (3.5-5.1)
[2024-02-12 21:55] LABS: CREATININE 5.2 mg/dL (0.6-1.3)
[2024-02-12 22:03] LABS: LACTIC ACID 0.4 mmol/L (0.4-2.0)
[2024-02-12 23:43] LABS: APPEARANCE,URINE CLEAR (CLEAR); BILIRUBIN,URINE NEGATIVE (NEGATIVE); BLOOD, URINE TRACE-I (NEGATIVE); COLOR,URINE YELLOW (YELLOW); LEUKOCYTE ESTERASE ,URINE NEGATIVE (NEGATIVE); NITRITE, URINE NEGATIVE (NEGATIVE); PH,URINE 7.5 (5.0-9.0); PROTEIN,URINE 3+ (NEGATIVE); UGLUCOSE 1+ (NEGATIVE); UROBILINOGEN,URINE 0.2 EU/dL (0.2 - 1)
[2024-02-12 23:49] LABS: RBC,URINE 0-5 /HPF (0-5)
[2024-02-12 23:50] LABS: BACTERIA,URINE 10-30 (MOD) /HPF (None Seen); MUCUS,URINE 1+ /LPF (None Seen); SQUAMOUS EPITHELIAL CELL,UR 4-10 (MOD) /LPF (0-3 (FEW)); WBC,URINE 0-5 /HPF (0-5)
[2024-02-13] VITALS (8 sets, daily range): BP systolic 115–191; BP diastolic 69–84; PULSE 58–89; RESP 18; TEMP 97.3–98.9; O2SAT 96–97
[2024-02-13] MEDS ORDERED: DEXTROSE 50% 50 ML SYR IVP PRN (00:35)
[2024-02-13] MEDS ORDERED: MORPHINE SULFATE 2 MG/ML SYR IVP PRN (00:35)
[2024-02-13] MEDS: NACL 0.9% 1,000 ML IV SCH (02:13)
[2024-02-13] MEDS: hydrALAZINE 20 MG/ML VIAL IVP PRN (05:12)
[2024-02-13] MEDS: ACETAMINOPHEN 325 MG TAB PO PRN (05:30)
[2024-02-13] MEDS: BLOOD GLUCOSE MONITORING 1 DEV DEV FS SCH (06:32)
[2024-02-13 08:59] LABS: BASOPHILS % (AUTO) 0.7 % (0.0-2.0); EOSINOPHILS # (AUTO) 0.1 K/uL (0-0.4); EOSINOPHILS % (AUTO) 1.8 % (0.0-4.0); HEMATOCRIT 24.3 % (36-48); HEMOGLOBIN 8.6 g/dL (12.0-16.0); LYMPHOCYTES # (AUTO) 1.6 K/uL (2.5-16.5); MEAN CORPUSCULAR HEMOGLOBIN 32 pg (27-31); MEAN CORPUSCULAR HGB CONC 35 g/dL (33-37); MEAN CORPUSCULAR VOLUME 91.5 fL (80-94); MONOCYTES # (AUTO) 0.5 K/uL (0.8-1.0); MONOCYTES % (AUTO) 7.7 % (1.7-9.3); NEUTROPHILS # (AUTO) 4.1 K/uL (1.8-7.7); NEUTROPHILS % (AUTO) 64.8 % (42.2-75.2); PLATELET COUNT (AUTO) 420 K/uL (140-450); RED BLOOD CELL COUNT(AUTO) 2.66 MIL/uL (4.20-5.40); RED CELL DISTRIBUTION WIDTH 14.9 % (11.6-13.7); WHITE BLOOD COUNT (AUTO) 6.3 K/uL (4.8-10.8)
[2024-02-13] MEDS ORDERED: ENOXAPARIN 40 MG/0.4 ML SYR SUBQ SCH (09:00)
[2024-02-13 09:23] LABS: ALBUMIN 2.8 g/dL (3.4-5.0); ANION GAP 15.7 (8-16); CARBON DIOXIDE 26.9 mmol/L (21-32); POTASSIUM 4.6 mmol/L (3.5-5.1); TOTAL BILIRUBIN 0.4 mg/dL (0.0-1.0); TOTAL PROTEIN, SERUM 5.8 g/dL (6.4-8.2)
[2024-02-13] MEDS: NIFEdipine 60 MG TABER PO SCH (09:25)
[2024-02-13 09:27] LABS: CREATININE 5.9 mg/dL (0.6-1.3)
[2024-02-13] MEDS: HYDROcodone/APAP 5/325 MG 1 TAB TAB PO PRN (10:10)
[2024-02-13] MEDS: carvediloL 12.5 MG TAB ONE (16:17)
[2024-02-13] MEDS: LOSARTAN 25 MG TAB ONE (16:18)
[2024-02-13] MEDS: carvediloL 12.5 MG TAB PO SCH (20:45)
[2024-02-14] VITALS (7 sets, daily range): BP systolic 159–188; BP diastolic 68–78; PULSE 68–82; RESP 18–20; TEMP 97.7–98.9; O2SAT 97–100
[2024-02-14 07:06] LABS: BASOPHILS # (AUTO) 0.1 K/uL (0.00-0.22); BASOPHILS % (AUTO) 0.8 % (0.0-2.0); EOSINOPHILS # (AUTO) 0.1 K/uL (0-0.4); EOSINOPHILS % (AUTO) 1.7 % (0.0-4.0); HEMATOCRIT 24.2 % (36-48); HEMOGLOBIN 8.3 g/dL (12.0-16.0); LYMPHOCYTES # (AUTO) 1.3 K/uL (2.5-16.5); LYMPHOCYTES % (AUTO) 20.7 % (20.5-51.1); MEAN CORPUSCULAR HEMOGLOBIN 32 pg (27-31); MEAN CORPUSCULAR HGB CONC 34 g/dL (33-37); MEAN CORPUSCULAR VOLUME 91.7 fL (80-94); MONOCYTES # (AUTO) 0.5 K/uL (0.8-1.0); MONOCYTES % (AUTO) 7.2 % (1.7-9.3); NEUTROPHILS # (AUTO) 4.5 K/uL (1.8-7.7); NEUTROPHILS % (AUTO) 69.6 % (42.2-75.2); PLATELET COUNT (AUTO) 383 K/uL (140-450); RED BLOOD CELL COUNT(AUTO) 2.63 MIL/uL (4.20-5.40); RED CELL DISTRIBUTION WIDTH 15.2 % (11.6-13.7); WHITE BLOOD COUNT (AUTO) 6.5 K/uL (4.8-10.8)
[2024-02-14 07:20] LABS: ANION GAP 15.6 (8-16); CALCIUM 8.7 mg/dL (8.5-10.1); CARBON DIOXIDE 26.1 mmol/L (21-32); MAGNESIUM 1.9 mg/dL (1.8-2.4); POTASSIUM 4.7 mmol/L (3.5-5.1); TOTAL BILIRUBIN 0.4 mg/dL (0.0-1.0); TOTAL PROTEIN, SERUM 6.3 g/dL (6.4-8.2)
[2024-02-14] MEDS: LOSARTAN 25 MG TAB PO SCH (08:40)
[2024-02-14] MEDS ORDERED: NIFEdipine 60 MG TABER PO SCH (09:00)
[2024-02-14] MEDS: INSULIN LISPRO SLIDING SCALE 100 UNITS/ML VIAL SUBQ PRN (11:54)
[2024-02-14] MEDS: ONDANSETRON 4 MG/2 ML VIAL IVP PRN (13:21)
== END 2024-02-14 20:15 | disposition short-term general hospital (02) ==
LOC: MED 20:33 → MTU 02-13 00:33
PROVIDERS: ADMIT Hospitalist; ATTEND Hospitalist
DX: E11.649 Type 2 diabetes mellitus with hypoglycemia without coma (principal); Z20.822 Contact with and (suspected) exposure to COVID-19; G93.41 Metabolic encephalopathy; R41.82 Altered mental status, unspecified; I12.0 Hypertensive chronic kidney disease with stage 5 chronic kidney disease or end stage renal disease; E11.22 Type 2 diabetes mellitus with diabetic chronic kidney disease; N18.6 End stage renal disease; D63.1 Anemia in chronic kidney disease; Z99.2 Dependence on renal dialysis; Z79.4 Long term (current) use of insulin
CPT/HCPCS: 36415; 71045; 74176; 80048; 80053; 81001; 82948; 83036; 83605; 83735; 83880; 84484; 85025; 87040; 87081; 87086; 87426; 87804; 93005; 96361; 96365; 96366; 96372; 96375; 96376; 99285; G0378; J0360; J0696; J1644; J1815; J2405; J7060

== ENCOUNTER 2024-02-28 01:20 | Emergency (ER) | payer OTHER ==
[~2024-02-28] VITALS: Ht 177.8 cm; Wt 74.8 kg
[2024-02-28 01:20] VITALS: BP 200/90; PULSE 90; RESP 18; TEMP 97.7; O2SAT 94
[~2024-02-28 01:20] MED LIST changes: -BUME1TAB PO; -CEFD300C3 PO; -CETI10CA17 PO; -NITR100C7 PO; -ONDA8TAB87 PO; -TOBR5DRO10 RIGHT EYE
[2024-02-28] MEDS: ONDANSETRON 4 MG ODT PO ONE (02:24)
[2024-02-28] MEDS: MORPHINE SULFATE 4 MG/ML SYR IM ONE (02:25)
[2024-02-28] MEDS ORDERED: ACETAMINOPHEN EXTRA STRENGTH 500 MG TAB ONE (04:46)
[2024-02-28] MEDS: ACETAMINOPHEN EXTRA STRENGTH 500 MG TAB PO ONE (04:47)
[2024-02-28 05:06] VITALS: BP 184/79; PULSE 90; RESP 16; TEMP 97.9; O2SAT 92
== END 2024-02-28 05:06 | disposition home or self-care (01) ==
LOC: MED 01:20
DX: R51.9 Headache, unspecified (principal); I12.0 Hypertensive chronic kidney disease with stage 5 chronic kidney disease or end stage renal disease; E11.22 Type 2 diabetes mellitus with diabetic chronic kidney disease; N18.6 End stage renal disease; J44.9 Chronic obstructive pulmonary disease, unspecified; Z99.2 Dependence on renal dialysis; Z79.1 Long term (current) use of non-steroidal anti-inflammatories (NSAID); Z79.899 Other long term (current) drug therapy
CPT/HCPCS: 70450; 96372; 99285; J2270; Q0162

== ENCOUNTER 2024-03-19 19:38 | Emergency (ER) | payer OTHER ==
[~2024-03-19] VITALS: Ht 167.6 cm; Wt 71.7 kg
[2024-03-19 19:46] VITALS: BP 165/63; PULSE 83; RESP 18; TEMP 97.1; O2SAT 92
[2024-03-19 20:08] VITALS: BP 170/63; PULSE 83; RESP 12; O2SAT 92
[2024-03-19 20:46] LABS: BASOPHILS % (AUTO) 0.5 % (0.0-2.0); EOSINOPHILS # (AUTO) 0.1 K/uL (0-0.4); EOSINOPHILS % (AUTO) 1.8 % (0.0-4.0); HEMATOCRIT 22.8 % (36-48); HEMOGLOBIN 7.7 g/dL (12.0-16.0); LYMPHOCYTES # (AUTO) 0.9 K/uL (2.5-16.5); LYMPHOCYTES % (AUTO) 14.8 % (20.5-51.1); MEAN CORPUSCULAR HEMOGLOBIN 31 pg (27-31); MEAN CORPUSCULAR HGB CONC 34 g/dL (33-37); MEAN CORPUSCULAR VOLUME 92.6 fL (80-94); MONOCYTES # (AUTO) 0.4 K/uL (0.8-1.0); MONOCYTES % (AUTO) 6.2 % (1.7-9.3); NEUTROPHILS # (AUTO) 4.4 K/uL (1.8-7.7); NEUTROPHILS % (AUTO) 76.7 % (42.2-75.2); PLATELET COUNT (AUTO) 420 K/uL (140-450); RED BLOOD CELL COUNT(AUTO) 2.47 MIL/uL (4.20-5.40); RED CELL DISTRIBUTION WIDTH 15.2 % (11.6-13.7); WHITE BLOOD COUNT (AUTO) 5.8 K/uL (4.8-10.8)
[2024-03-19] MEDS: ACETAMINOPHEN 325 MG TAB PO ONE (20:52)
[2024-03-19 21:09] LABS: CARBON DIOXIDE 32.1 mmol/L (21-32); CREATININE 3.9 mg/dL (0.6-1.3); POTASSIUM 4.1 mmol/L (3.5-5.1)
[2024-03-19 21:15] LABS: ALBUMIN 3.2 g/dL (3.4-5.0); BILIRUBIN,DIRECT 0.2 mg/dL (0.0-0.3); TOTAL BILIRUBIN 0.5 mg/dL (0.0-1.0); TOTAL PROTEIN, SERUM 7.1 g/dL (6.4-8.2)
[2024-03-19] MEDS ORDERED: ONDA-188 SL (21:43)
== END 2024-03-19 22:30 | disposition home or self-care (01) ==
LOC: MED 19:38
DX: R10.9 Unspecified abdominal pain (principal); R11.0 Nausea; R19.7 Diarrhea, unspecified; I12.0 Hypertensive chronic kidney disease with stage 5 chronic kidney disease or end stage renal disease; E11.22 Type 2 diabetes mellitus with diabetic chronic kidney disease; N18.6 End stage renal disease; Z99.2 Dependence on renal dialysis; Z79.1 Long term (current) use of non-steroidal anti-inflammatories (NSAID); Z79.899 Other long term (current) drug therapy
CPT/HCPCS: 36415; 80048; 80076; 83690; 85025; 99283

== ENCOUNTER 2024-04-10 16:55 | Inpatient (IN) | payer OTHER ==
[2024-04-09 22:40] VITALS: PULSE 70; RESP 16; O2SAT 97
[~2024-04-10] VITALS: Ht 167.6 cm; Wt 99.8 kg
[~2024-04-10 16:55] MED LIST changes: -ACET-10509 PO; +ACET500T99 PO; +ONDA-188 SL
[2024-04-10 17:05] VITALS: BP 174/82; PULSE 77; RESP 16; TEMP 98.3; O2SAT 96
[2024-04-10 19:15] LABS: BASOPHILS % (AUTO) 0.4 % (0.0-2.0); EOSINOPHILS # (AUTO) 0.1 K/uL (0-0.4); EOSINOPHILS % (AUTO) 1.7 % (0.0-4.0); HEMATOCRIT 24.1 % (36-48); HEMOGLOBIN 8.1 g/dL (12.0-16.0); LYMPHOCYTES % (AUTO) 15.7 % (20.5-51.1); MEAN CORPUSCULAR HEMOGLOBIN 31 pg (27-31); MEAN CORPUSCULAR HGB CONC 34 g/dL (33-37); MEAN CORPUSCULAR VOLUME 93.5 fL (80-94); MONOCYTES # (AUTO) 0.5 K/uL (0.8-1.0); MONOCYTES % (AUTO) 7.1 % (1.7-9.3); NEUTROPHILS % (AUTO) 75.1 % (42.2-75.2); PLATELET COUNT (AUTO) 340 K/uL (140-450); RED BLOOD CELL COUNT(AUTO) 2.57 MIL/uL (4.20-5.40); RED CELL DISTRIBUTION WIDTH 15.8 % (11.6-13.7); WHITE BLOOD COUNT (AUTO) 6.6 K/uL (4.8-10.8)
[2024-04-10 19:28] LABS: ANION GAP 15.6 (8-16); CALCIUM 8.5 mg/dL (8.5-10.1); CARBON DIOXIDE 28.4 mmol/L (21-32)
[2024-04-10 19:30] LABS: CREATININE 5.5 mg/dL (0.6-1.3)
[2024-04-10 20:14] LABS: APPEARANCE,URINE CLEAR (CLEAR); BILIRUBIN,URINE NEGATIVE (NEGATIVE); BLOOD, URINE 1+ (NEGATIVE); COLOR,URINE YELLOW (YELLOW); LEUKOCYTE ESTERASE ,URINE TRACE (NEGATIVE); NITRITE, URINE NEGATIVE (NEGATIVE); PROTEIN,URINE 3+ (NEGATIVE); UGLUCOSE 1+ (NEGATIVE); UROBILINOGEN,URINE 0.2 EU/dL (0.2 - 1)
[2024-04-10 20:25] LABS: BACTERIA,URINE FEW /HPF (None Seen); SQUAMOUS EPITHELIAL CELL,UR 0-3 (FEW) /LPF (0-3 (FEW))
[2024-04-10] MEDS: ACETAMINOPHEN EXTRA STRENGTH 500 MG TAB PO ONE (20:55)
[2024-04-10] MEDS: prednisoLONE 1% OP 5 ML BTL LEFT EYE SCH (21:20)
[2024-04-10] MEDS ORDERED: PRED5SUS44 LEFT EYE (21:20)
[2024-04-10] MEDS ORDERED: LOPERAMIDE 2 MG CAP PO PRN (21:20)
[2024-04-10] MEDS ORDERED: TIMO5SOL LEFT EYE (21:20)
[2024-04-10] MEDS ORDERED: LOSA100T52 PO (21:20)
[2024-04-10] MEDS ORDERED: [UNRECOGNIZED DRUG - CODE] LEFT EYE (21:20)
[2024-04-10] MEDS: FUROSEMIDE 40 MG/4 ML VIAL IVP ONE (21:26)
[2024-04-10] MEDS: SODIUM ZIRCONIUM CYCLOSILICATE 10 GM POWD.PACK PO ONE (21:40)
[2024-04-10] MEDS ORDERED: carvediloL 12.5 MG TAB ONE (22:07)
[2024-04-10] MEDS ORDERED: NIFEdipine 60 MG TABER PO ONE (22:07)
[2024-04-10] MEDS ORDERED: LOSARTAN 25 MG TAB ONE (22:07)
[2024-04-10] MEDS: NIFEdipine 60 MG TABER PO ONE (22:11)
[2024-04-10] MEDS: carvediloL 12.5 MG TAB PO SCH (22:11)
[2024-04-10] MEDS: LOSARTAN 25 MG TAB PO ONE (22:12)
[2024-04-10] MEDS: carvediloL 3.125 MG TAB PO ONE (22:12)
[2024-04-10 22:40] VITALS: PULSE 70; RESP 16; TEMP 98.9; O2SAT 97
[2024-04-11] VITALS: BP 210/90; PULSE 70; PULSE 89; RESP 18; TEMP 98.1; O2SAT 99
[2024-04-11] MEDS: hydrALAZINE 20 MG/ML VIAL IVP PRN (01:29)
[2024-04-11 04:00] VITALS: BP 156/67; PULSE 75; PULSE 84; RESP 18; TEMP 98.1; O2SAT 99
[2024-04-11 08:00] VITALS: BP 153/66; PULSE 76; PULSE 77; RESP 16; TEMP 97.9; O2SAT 96
[2024-04-11] MEDS ORDERED: TIMOLOL MALEATE OP SCH (09:00)
[2024-04-11] MEDS: ACETAMINOPHEN EXTRA STRENGTH 500 MG TAB PO PRN (09:20)
[2024-04-11] MEDS: ATORVASTATIN 20 MG TAB PO SCH (09:21)
[2024-04-11] MEDS: LOSARTAN 25 MG TAB PO SCH (09:22)
[2024-04-11] MEDS: bisacodyL 5 MG TABEC PO PRN (09:22)
[2024-04-11] MEDS: NIFEdipine 60 MG TABER PO SCH (09:22)
[2024-04-11] MEDS: APIXABAN 2.5 MG TAB PO SCH (09:25)
[2024-04-11] MEDS: prednisoLONE 1% OP 5 ML BTL LEFT EYE SCH (09:55)
[2024-04-11] MEDS: TIMOLOL OP 0.25% 5 ML BTL OP SCH (09:56)
[2024-04-11 12:00] VITALS: BP 138/62; PULSE 68; PULSE 69; RESP 16; TEMP 97.5; O2SAT 92
[2024-04-11] MEDS: LOSARTAN 50 MG TAB PO SCH (12:16)
[2024-04-11 17:40] VITALS: BP 159/66; PULSE 80; PULSE 91; RESP 16; TEMP 98.8; O2SAT 98
[2024-04-11] MEDS: ONDANSETRON 4 MG ODT SL PRN (19:12)
[2024-04-11 20:00] VITALS: BP 136/64; PULSE 79; PULSE 88; PULSE 90; RESP 19; TEMP 97.9; O2SAT 92; O2SAT 93
[2024-04-11] MEDS: MEDS-TO-BEDS MC SCH (21:00)
[2024-04-11] MEDS: carvediloL 12.5 MG TAB PO SCH (22:21)
[2024-04-12] VITALS: BP 172/72; PULSE 79; RESP 19; TEMP 99.3; O2SAT 93
[2024-04-12 04:45] VITALS: PULSE 71
[2024-04-12 05:05] VITALS: BP 175/72; PULSE 76; RESP 18; TEMP 98.8; O2SAT 100
[2024-04-12 08:00] VITALS: BP 187/76; PULSE 78; RESP 20; TEMP 96.6; O2SAT 99
[2024-04-12] MEDS: LOSARTAN 50 MG TAB PO SCH (08:21)
[2024-04-12] MEDS ORDERED: CLONIDINE HYDROCHLORIDE 0.1 MG TAB PO PRN (09:05)
[2024-04-12 11:47] VITALS: BP 115/54; PULSE 72; RESP 20; TEMP 97.4
[2024-04-12 11:59] LABS: ANION GAP 16.3 (8-16); CALCIUM 8.5 mg/dL (8.5-10.1); CARBON DIOXIDE 26.2 mmol/L (21-32); POTASSIUM 4.5 mmol/L (3.5-5.1)
[2024-04-12 12:00] VITALS: BP 115/54; PULSE 72; PULSE 90; RESP 20; TEMP 97.4; O2SAT 92
[2024-04-12 12:04] LABS: CREATININE 4.8 mg/dL (0.6-1.3)
== END 2024-04-12 14:50 | disposition home or self-care (01) | DRG 194 ==
LOC: MED 16:55 → MTU 21:13
PROVIDERS: ADMIT Internal Medicine; ATTEND Internal Medicine
DX: I13.2 Hypertensive heart and chronic kidney disease with heart failure and with stage 5 chronic kidney disease, or end stage renal disease (principal); N18.6 End stage renal disease; D63.1 Anemia in chronic kidney disease; E11.22 Type 2 diabetes mellitus with diabetic chronic kidney disease; E83.39 Other disorders of phosphorus metabolism; Z79.01 Long term (current) use of anticoagulants; I50.33 Acute on chronic diastolic (congestive) heart failure; J44.9 Chronic obstructive pulmonary disease, unspecified; E66.9 Obesity, unspecified; Z68.35 Body mass index [BMI] 35.0-35.9, adult; Z79.899 Other long term (current) drug therapy; E87.70 Fluid overload, unspecified
CPT/HCPCS: 36415; 71045; 80048; 81001; 82948; 83880; 84484; 85025; 87081; 87086; 93005; 96374; 99285; J0360; J1644; J1940; Q0162

== ENCOUNTER 2024-05-12 12:23 | Inpatient (IN) | payer OTHER ==
[~2024-05-12] VITALS: Ht 162.6 cm; Wt 54.4 kg
[~2024-05-12 12:23] MED LIST changes: -LOSA-269 PO; +LOSA100T52 PO; +PRED5SUS44 LEFT EYE; +TIMO5SOL LEFT EYE; +[UNRECOGNIZED DRUG - CODE] LEFT EYE
[2024-05-12 12:34] VITALS: BP 128/62; PULSE 67; RESP 18; TEMP 97.9; O2SAT 97
[2024-05-12 12:45] VITALS: O2SAT 97
[2024-05-12 13:43] LABS: BASOPHILS % (AUTO) 0.6 % (0.0-2.0); EOSINOPHILS # (AUTO) 0.2 K/uL (0-0.4); EOSINOPHILS % (AUTO) 3.7 % (0.0-4.0); HEMATOCRIT 29.7 % (36-48); HEMOGLOBIN 9.8 g/dL (12.0-16.0); LYMPHOCYTES # (AUTO) 0.7 K/uL (2.5-16.5); LYMPHOCYTES % (AUTO) 14.1 % (20.5-51.1); MEAN CORPUSCULAR HEMOGLOBIN 30 pg (27-31); MEAN CORPUSCULAR HGB CONC 33 g/dL (33-37); MEAN CORPUSCULAR VOLUME 89.3 fL (80-94); MONOCYTES # (AUTO) 0.4 K/uL (0.8-1.0); MONOCYTES % (AUTO) 7.5 % (1.7-9.3); NEUTROPHILS # (AUTO) 3.8 K/uL (1.8-7.7); NEUTROPHILS % (AUTO) 74.1 % (42.2-75.2); PLATELET COUNT (AUTO) 374 K/uL (140-450); RED BLOOD CELL COUNT(AUTO) 3.32 MIL/uL (4.20-5.40); RED CELL DISTRIBUTION WIDTH 15.3 % (11.6-13.7); WHITE BLOOD COUNT (AUTO) 5.2 K/uL (4.8-10.8)
[2024-05-12] MEDS: fentaNYL citrate 0.05 MG/ML VIAL IVP ONE (13:58)
[2024-05-12 14:18] LABS: CALCIUM 8.9 mg/dL (8.5-10.1); CARBON DIOXIDE 29.2 mmol/L (21-32)
[2024-05-12 14:23] LABS: CREATININE 6.4 mg/dL (0.6-1.3); POTASSIUM 6.2 mmol/L (3.5-5.1)
[2024-05-12 14:24] LABS: ALANINE AMINOTRANSFERASE 20 U/L (12-78); ALBUMIN 3.5 g/dL (3.4-5.0); ALKALINE PHOSPHATASE 85 U/L (50-136); ASPARTATE AMINOTRANSFERASE 12 U/L (15-37); BILIRUBIN,DIRECT 0.2 mg/dL (0.0-0.3); LIPASE 13 U/L (16-77); TOTAL BILIRUBIN 0.8 mg/dL (0.0-1.0); TOTAL PROTEIN, SERUM 6.9 g/dL (6.4-8.2)
[2024-05-12 15:08] VITALS: O2SAT 97
[2024-05-12] MEDS: DEXTROSE 50% 50 ML SYR IVP ONE (15:11)
[2024-05-12] MEDS: INSULIN REGULAR, HUMAN 100 UNIT/ML VIAL IVP ONE (15:14)
[2024-05-12] MEDS: SODIUM ZIRCONIUM CYCLOSILICATE 10 GM POWD.PACK PO ONE (15:15)
[2024-05-12] MEDS ORDERED: SEVE800T6 PO (15:30)
[2024-05-12] MEDS ORDERED: FURO-572 PO (15:32)
[2024-05-12] MEDS ORDERED: MAG SULF 2000 MG/WATER PREMIX 50 ML IV PRN (15:35)
[2024-05-12] MEDS ORDERED: ACETAMINOPHEN 325 MG TAB PO PRN (15:35)
[2024-05-12] MEDS ORDERED: POTASSIUM CHLORIDE 10 MEQ TABER PO PRN (15:35)
[2024-05-12] MEDS ORDERED: MAGNESIUM OXIDE 400 MG TAB PO PRN (15:35)
[2024-05-12] MEDS: ONDANSETRON 4 MG/2 ML VIAL IVP PRN (16:35)
[2024-05-12] MEDS: HYDROmorphone 1 MG/ML AMP IVP PRN (16:37)
[2024-05-12 19:00] VITALS: BP 150/74; PULSE 73; RESP 18; TEMP 97.6; O2SAT 95
[2024-05-12 20:00] VITALS: BP 144/66; PULSE 76; RESP 17; TEMP 98.1; O2SAT 95
[2024-05-12 20:04] VITALS: PULSE 76
[2024-05-13] VITALS (11 sets, daily range): BP systolic 111–204; BP diastolic 70–80; PULSE 59–91; RESP 18–20; TEMP 97.6–98.5; O2SAT 95–99
[2024-05-13] MEDS: CLONIDINE HYDROCHLORIDE 0.1 MG TAB ONE (00:20)
[2024-05-13] MEDS: CLONIDINE HYDROCHLORIDE 0.1 MG TAB PO PRN (00:22)
[2024-05-13 07:07] LABS: CALCIUM 8.5 mg/dL (8.5-10.1); CARBON DIOXIDE 30.2 mmol/L (21-32); POTASSIUM 4.2 mmol/L (3.5-5.1)
[2024-05-13 07:12] LABS: MAGNESIUM 2.1 mg/dL (1.8-2.4); PHOSPHORUS 3.9 mg/dL (2.5-4.9)
[2024-05-13 07:19] LABS: BASOPHILS % (AUTO) 0.9 % (0.0-2.0); EOSINOPHILS # (AUTO) 0.1 K/uL (0-0.4); EOSINOPHILS % (AUTO) 3.1 % (0.0-4.0); HEMATOCRIT 27.1 % (36-48); HEMOGLOBIN 9.1 g/dL (12.0-16.0); LYMPHOCYTES # (AUTO) 0.7 K/uL (2.5-16.5); LYMPHOCYTES % (AUTO) 20.2 % (20.5-51.1); MEAN CORPUSCULAR HEMOGLOBIN 30 pg (27-31); MEAN CORPUSCULAR HGB CONC 34 g/dL (33-37); MEAN CORPUSCULAR VOLUME 88.5 fL (80-94); MONOCYTES # (AUTO) 0.3 K/uL (0.8-1.0); MONOCYTES % (AUTO) 9.4 % (1.7-9.3); NEUTROPHILS # (AUTO) 2.3 K/uL (1.8-7.7); NEUTROPHILS % (AUTO) 66.4 % (42.2-75.2); PLATELET COUNT (AUTO) 349 K/uL (140-450); RED BLOOD CELL COUNT(AUTO) 3.06 MIL/uL (4.20-5.40); WHITE BLOOD COUNT (AUTO) 3.5 K/uL (4.8-10.8)
[2024-05-13 07:33] LABS: CREATININE 4.2 mg/dL (0.6-1.3)
[2024-05-13] MEDS: MEDS-TO-BEDS MC SCH (09:00)
[2024-05-13] MEDS ORDERED: ACETAMINOPHEN EXTRA STRENGTH 500 MG TAB PO PRN (10:15)
[2024-05-13] MEDS: ATORVASTATIN 20 MG TAB PO SCH (10:25)
[2024-05-13] MEDS: NIFEdipine 60 MG TABER PO SCH (10:26)
[2024-05-13] MEDS: carvediloL 12.5 MG TAB PO SCH (10:26)
[2024-05-13] MEDS: FUROSEMIDE 20 MG TAB PO SCH (10:27)
[2024-05-13] MEDS: SEVELAMER CARBONATE 800 MG TAB PO SCH (12:30)
[2024-05-13] MEDS: HYDROcodone/APAP 5/325 MG 1 TAB TAB PO PRN (13:36)
[2024-05-14] VITALS (7 sets, daily range): BP systolic 122–209; BP diastolic 54–92; PULSE 63–70; RESP 18–20; TEMP 97.5–98.6; O2SAT 96–99
[2024-05-14 07:18] LABS: BASOPHILS % (AUTO) 0.9 % (0.0-2.0); EOSINOPHILS # (AUTO) 0.2 K/uL (0-0.4); HEMATOCRIT 28.6 % (36-48); HEMOGLOBIN 9.6 g/dL (12.0-16.0); LYMPHOCYTES % (AUTO) 23.7 % (20.5-51.1); MEAN CORPUSCULAR HEMOGLOBIN 30 pg (27-31); MEAN CORPUSCULAR HGB CONC 34 g/dL (33-37); MEAN CORPUSCULAR VOLUME 89.1 fL (80-94); MONOCYTES # (AUTO) 0.4 K/uL (0.8-1.0); MONOCYTES % (AUTO) 8.3 % (1.7-9.3); NEUTROPHILS # (AUTO) 2.7 K/uL (1.8-7.7); NEUTROPHILS % (AUTO) 63.1 % (42.2-75.2); PLATELET COUNT (AUTO) 391 K/uL (140-450); RED BLOOD CELL COUNT(AUTO) 3.21 MIL/uL (4.20-5.40); RED CELL DISTRIBUTION WIDTH 15.2 % (11.6-13.7); WHITE BLOOD COUNT (AUTO) 4.3 K/uL (4.8-10.8)
[2024-05-14 07:24] LABS: MAGNESIUM 2.3 mg/dL (1.8-2.4); PHOSPHORUS 4.6 mg/dL (2.5-4.9)
[2024-05-14 07:29] LABS: ANION GAP 14.2 (8-16); CALCIUM 8.8 mg/dL (8.5-10.1); POTASSIUM 4.2 mmol/L (3.5-5.1)
[2024-05-14 07:42] LABS: CREATININE 5.8 mg/dL (0.6-1.3)
== END 2024-05-14 19:40 | DRG 249 ==
LOC: MED 12:23 → MMU 15:39 → MTU 17:32
PROVIDERS: ADMIT Hospitalist; ATTEND Hospitalist
PROC: 5A1D70Z Performance of Urinary Filtration, Intermittent, Less than 6 Hours Per Day (ICD-10-PCS; 2024-05-12)
PROC: 5A1D70Z Performance of Urinary Filtration, Intermittent, Less than 6 Hours Per Day (ICD-10-PCS; principal; 2024-05-14)
DX: A08.4 Viral intestinal infection, unspecified (principal); R65.11 Systemic inflammatory response syndrome (SIRS) of non-infectious origin with acute organ dysfunction; I13.2 Hypertensive heart and chronic kidney disease with heart failure and with stage 5 chronic kidney disease, or end stage renal disease; E44.1 Mild protein-calorie malnutrition; J90 Pleural effusion, not elsewhere classified; E87.1 Hypo-osmolality and hyponatremia; N18.6 End stage renal disease; E11.22 Type 2 diabetes mellitus with diabetic chronic kidney disease; J44.9 Chronic obstructive pulmonary disease, unspecified; E87.5 Hyperkalemia; I50.9 Heart failure, unspecified; Z99.2 Dependence on renal dialysis; Z98.891 History of uterine scar from previous surgery; Z79.899 Other long term (current) drug therapy; Z68.20 Body mass index [BMI] 20.0-20.9, adult
CPT/HCPCS: 36415; 80048; 80076; 83690; 83735; 84100; 84484; 85025; 87081; 90935; 93005; 96374; 96375; 99291; J1170; J1644; J1815; J2405; J3010

== ENCOUNTER 2024-05-28 18:26 | Inpatient (IN) | payer OTHER ==
[~2024-05-28] VITALS: Ht 152.4 cm; Wt 72.6 kg
[~2024-05-28 18:26] MED LIST changes: -APIX2.5 PO; -BISA-28 PO; +FURO-572 PO; -LOPE-289 PO; -LOSA100T52 PO; -ONDA-188 PO; -ONDA-188 SL; -PROP10DR4 OP; +SEVE800T6 PO; -TIMO5SOL LEFT EYE; -[UNRECOGNIZED DRUG - CODE] LEFT EYE
[2024-05-28] MEDS ORDERED: LORazepam 2 MG/ML VIAL ONE (18:37)
[2024-05-28 18:45] VITALS: BP 239/132; PULSE 96; RESP 19; TEMP 98; O2SAT 97
[2024-05-28] MEDS: LORazepam 2 MG/ML VIAL IM ONE (19:07)
[2024-05-28] MEDS: ENALAPRILAT 2.5 MG/2 ML VIAL IVP ONE (19:22)
[2024-05-28 19:40] LABS: BASOPHILS % (AUTO) 0.4 % (0.0-2.0); EOSINOPHILS # (AUTO) 0.2 K/uL (0-0.4); EOSINOPHILS % (AUTO) 2.9 % (0.0-4.0); HEMATOCRIT 26.2 % (36-48); HEMOGLOBIN 8.7 g/dL (12.0-16.0); LYMPHOCYTES # (AUTO) 0.9 K/uL (2.5-16.5); LYMPHOCYTES % (AUTO) 16.3 % (20.5-51.1); MEAN CORPUSCULAR HEMOGLOBIN 29 pg (27-31); MEAN CORPUSCULAR HGB CONC 33 g/dL (33-37); MEAN CORPUSCULAR VOLUME 88.6 fL (80-94); MONOCYTES # (AUTO) 0.3 K/uL (0.8-1.0); MONOCYTES % (AUTO) 4.8 % (1.7-9.3); NEUTROPHILS # (AUTO) 4.2 K/uL (1.8-7.7); NEUTROPHILS % (AUTO) 75.6 % (42.2-75.2); PLATELET COUNT (AUTO) 382 K/uL (140-450); RED BLOOD CELL COUNT(AUTO) 2.95 MIL/uL (4.20-5.40); RED CELL DISTRIBUTION WIDTH 15.7 % (11.6-13.7); WHITE BLOOD COUNT (AUTO) 5.6 K/uL (4.8-10.8)
[2024-05-28 19:51] LABS: ANION GAP 14.6 (8-16); CALCIUM 10.5 mg/dL (8.5-10.1); CARBON DIOXIDE 31.5 mmol/L (21-32); CREATININE 3.9 mg/dL (0.6-1.3); POTASSIUM 4.1 mmol/L (3.5-5.1)
[2024-05-28] MEDS: LORazepam 2 MG/ML VIAL IVP ONE (19:55)
[2024-05-28 19:57] VITALS: O2SAT 97
[2024-05-28 20:03] LABS: ALANINE AMINOTRANSFERASE 36 U/L (12-78); ALBUMIN 3.4 g/dL (3.4-5.0); ALKALINE PHOSPHATASE 112 U/L (50-136); ASPARTATE AMINOTRANSFERASE 36 U/L (15-37); BILIRUBIN,DIRECT 0.2 mg/dL (0.0-0.3); CREATINE KINASE, TOTAL 157 U/L (26-192); THYROID STIMULATING HORMONE 1.85 uIU/mL (0.34-3.74); TOTAL BILIRUBIN 0.6 mg/dL (0.0-1.0); TOTAL PROTEIN, SERUM 6.9 g/dL (6.4-8.2)
[2024-05-28 20:04] LABS: ALCOHOL, BLOOD < 3 mg/dL (<10)
[2024-05-28] MEDS ORDERED: MAG SULF 2000 MG/WATER PREMIX 50 ML IV PRN (20:50)
[2024-05-28] MEDS ORDERED: HYDROcodone/APAP 5/325 MG 1 TAB TAB PO PRN (20:50)
[2024-05-28] MEDS ORDERED: MAGNESIUM OXIDE 400 MG TAB PO PRN (20:50)
[2024-05-28 21:54] VITALS: PULSE 78; PULSE 85; RESP 18; O2SAT 96
[2024-05-28] MEDS: hydrALAZINE 20 MG/ML VIAL IVP PRN (22:27)
[2024-05-29] VITALS (7 sets, daily range): BP systolic 122–225; BP diastolic 69–90; PULSE 76–87; RESP 18; TEMP 97.5–98.7; O2SAT 96–99
[2024-05-29 07:13] LABS: BASOPHILS % (AUTO) 0.8 % (0.0-2.0); EOSINOPHILS # (AUTO) 0.2 K/uL (0-0.4); HEMOGLOBIN 7.9 g/dL (12.0-16.0); LYMPHOCYTES # (AUTO) 0.8 K/uL (2.5-16.5); LYMPHOCYTES % (AUTO) 14.8 % (20.5-51.1); MEAN CORPUSCULAR HEMOGLOBIN 29 pg (27-31); MEAN CORPUSCULAR HGB CONC 33 g/dL (33-37); MEAN CORPUSCULAR VOLUME 88.8 fL (80-94); MONOCYTES # (AUTO) 0.3 K/uL (0.8-1.0); MONOCYTES % (AUTO) 6.1 % (1.7-9.3); NEUTROPHILS % (AUTO) 74.3 % (42.2-75.2); PLATELET COUNT (AUTO) 346 K/uL (140-450); RED BLOOD CELL COUNT(AUTO) 2.71 MIL/uL (4.20-5.40); RED CELL DISTRIBUTION WIDTH 15.4 % (11.6-13.7); WHITE BLOOD COUNT (AUTO) 5.3 K/uL (4.8-10.8)
[2024-05-29 07:30] LABS: ALBUMIN 2.8 g/dL (3.4-5.0); ANION GAP 12.8 (8-16); CALCIUM 9.6 mg/dL (8.5-10.1); CARBON DIOXIDE 30.9 mmol/L (21-32); POTASSIUM 4.7 mmol/L (3.5-5.1); TOTAL BILIRUBIN 0.6 mg/dL (0.0-1.0)
[2024-05-29] MEDS: DOCUSATE SODIUM 100 MG GELCAP PO SCH (09:30)
[2024-05-29] MEDS: PIPERACILLIN/TAZOBACTAM 3.375 GM in DEXTROSE 5% 50 ML IV SCH (11:53)
[2024-05-29] MEDS: MORPHINE SULFATE 4 MG/ML SYR IVP PRN (15:03)
[2024-05-29] MEDS: EPOETIN ALFA-EPBX 10,000 UNITS/ML VIAL IV SCH (15:44)
[2024-05-29] MEDS: ACETAMINOPHEN 325 MG TAB PO PRN (16:40)
[2024-05-29] MEDS: ONDANSETRON 4 MG/2 ML VIAL IVP PRN (17:07)
[2024-05-29] MEDS: MEDS-TO-BEDS MC SCH (21:00)
[2024-05-29 23:51] LABS: FLU A ANTIGEN negative (NEGATIVE); FLU B ANTIGEN NEGATIVE (NEGATIVE); RSV NEGATIVE (NEGATIVE)
[2024-05-30] VITALS (8 sets, daily range): BP systolic 113–234; BP diastolic 56–95; PULSE 68–89; RESP 18–19; TEMP 97–98.6; O2SAT 92–100
[2024-05-30] MEDS: carvediloL 12.5 MG TAB PO SCH (01:00)
[2024-05-30 06:51] LABS: BASOPHILS % (AUTO) 0.4 % (0.0-2.0); EOSINOPHILS # (AUTO) 0.2 K/uL (0-0.4); EOSINOPHILS % (AUTO) 2.6 % (0.0-4.0); HEMATOCRIT 24.9 % (36-48); HEMOGLOBIN 8.2 g/dL (12.0-16.0); LYMPHOCYTES # (AUTO) 0.7 K/uL (2.5-16.5); LYMPHOCYTES % (AUTO) 11.8 % (20.5-51.1); MEAN CORPUSCULAR HEMOGLOBIN 29 pg (27-31); MEAN CORPUSCULAR HGB CONC 33 g/dL (33-37); MEAN CORPUSCULAR VOLUME 88.5 fL (80-94); MONOCYTES # (AUTO) 0.3 K/uL (0.8-1.0); MONOCYTES % (AUTO) 5.8 % (1.7-9.3); NEUTROPHILS # (AUTO) 4.8 K/uL (1.8-7.7); NEUTROPHILS % (AUTO) 79.4 % (42.2-75.2); PLATELET COUNT (AUTO) 381 K/uL (140-450); RED BLOOD CELL COUNT(AUTO) 2.81 MIL/uL (4.20-5.40); RED CELL DISTRIBUTION WIDTH 15.6 % (11.6-13.7)
[2024-05-30 06:58] LABS: ANION GAP 9.2 (8-16); CALCIUM 8.5 mg/dL (8.5-10.1); CARBON DIOXIDE 32.7 mmol/L (21-32); CREATININE 3.7 mg/dL (0.6-1.3); POTASSIUM 3.9 mmol/L (3.5-5.1)
[2024-05-30 07:24] LABS: ALBUMIN 2.9 g/dL (3.4-5.0); ANION GAP 11.5 (8-16); CALCIUM 8.4 mg/dL (8.5-10.1); CARBON DIOXIDE 31.4 mmol/L (21-32); CREATININE 3.8 mg/dL (0.6-1.3); MAGNESIUM 2.2 mg/dL (1.8-2.4); POTASSIUM 3.9 mmol/L (3.5-5.1); TOTAL BILIRUBIN 0.6 mg/dL (0.0-1.0)
[2024-05-30] MEDS: ATORVASTATIN 20 MG TAB PO SCH (08:50)
[2024-05-30] MEDS: NIFEdipine 60 MG TABER PO SCH (08:51)
[2024-05-30] MEDS: SEVELAMER CARBONATE 800 MG TAB PO SCH (08:51)
[2024-05-30] MEDS: LACTULOSE 20 GM/30 ML UDC ONE (08:59)
[2024-05-30] MEDS: hydrALAZINE 25 MG TAB PO SCH (13:42)
[2024-05-30] MEDS: LACTULOSE 20 GM/30 ML UDC PO PRN (16:40)
[2024-05-30] MEDS: QUEtiapine FUMARATE 25 MG TAB PO SCH (20:31)
[2024-05-31] VITALS (9 sets, daily range): BP systolic 130–208; BP diastolic 69–88; PULSE 54–97; RESP 16–18; TEMP 97.9–98.8; O2SAT 95–100
[2024-05-31 06:52] LABS: BASOPHILS % (AUTO) 0.6 % (0.0-2.0); EOSINOPHILS # (AUTO) 0.2 K/uL (0-0.4); EOSINOPHILS % (AUTO) 4.4 % (0.0-4.0); HEMATOCRIT 25.3 % (36-48); HEMOGLOBIN 8.4 g/dL (12.0-16.0); LYMPHOCYTES # (AUTO) 0.8 K/uL (2.5-16.5); LYMPHOCYTES % (AUTO) 14.5 % (20.5-51.1); MEAN CORPUSCULAR HEMOGLOBIN 29 pg (27-31); MEAN CORPUSCULAR HGB CONC 33 g/dL (33-37); MEAN CORPUSCULAR VOLUME 87.9 fL (80-94); MONOCYTES # (AUTO) 0.4 K/uL (0.8-1.0); NEUTROPHILS # (AUTO) 4.1 K/uL (1.8-7.7); NEUTROPHILS % (AUTO) 73.5 % (42.2-75.2); PLATELET COUNT (AUTO) 408 K/uL (140-450); RED BLOOD CELL COUNT(AUTO) 2.87 MIL/uL (4.20-5.40); RED CELL DISTRIBUTION WIDTH 15.4 % (11.6-13.7); WHITE BLOOD COUNT (AUTO) 5.5 K/uL (4.8-10.8)
[2024-05-31 08:31] LABS: ALBUMIN 3.1 g/dL (3.4-5.0); ANION GAP 10.3 (8-16); CALCIUM 8.9 mg/dL (8.5-10.1); CARBON DIOXIDE 30.6 mmol/L (21-32); CREATININE 3.2 mg/dL (0.6-1.3); MAGNESIUM 2.1 mg/dL (1.8-2.4); POTASSIUM 3.9 mmol/L (3.5-5.1); TOTAL BILIRUBIN 0.7 mg/dL (0.0-1.0); TOTAL PROTEIN, SERUM 6.3 g/dL (6.4-8.2)
[2024-06-01] VITALS (9 sets, daily range): BP systolic 126–221; BP diastolic 57–95; PULSE 65–84; RESP 18–20; TEMP 98–98.9; O2SAT 94–99
[2024-06-01 06:36] LABS: BASOPHILS % (AUTO) 0.7 % (0.0-2.0); EOSINOPHILS # (AUTO) 0.3 K/uL (0-0.4); EOSINOPHILS % (AUTO) 6.1 % (0.0-4.0); HEMATOCRIT 25.6 % (36-48); HEMOGLOBIN 8.4 g/dL (12.0-16.0); MEAN CORPUSCULAR HEMOGLOBIN 29 pg (27-31); MEAN CORPUSCULAR HGB CONC 33 g/dL (33-37); MEAN CORPUSCULAR VOLUME 87.7 fL (80-94); MONOCYTES # (AUTO) 0.4 K/uL (0.8-1.0); MONOCYTES % (AUTO) 7.6 % (1.7-9.3); NEUTROPHILS # (AUTO) 3.2 K/uL (1.8-7.7); NEUTROPHILS % (AUTO) 64.6 % (42.2-75.2); PLATELET COUNT (AUTO) 420 K/uL (140-450); RED BLOOD CELL COUNT(AUTO) 2.91 MIL/uL (4.20-5.40); RED CELL DISTRIBUTION WIDTH 15.7 % (11.6-13.7); WHITE BLOOD COUNT (AUTO) 4.9 K/uL (4.8-10.8)
[2024-06-01 06:51] LABS: ALBUMIN 2.7 g/dL (3.4-5.0); ANION GAP 10.3 (8-16); CALCIUM 8.7 mg/dL (8.5-10.1); CARBON DIOXIDE 30.7 mmol/L (21-32); MAGNESIUM 2.2 mg/dL (1.8-2.4); TOTAL BILIRUBIN 0.5 mg/dL (0.0-1.0); TOTAL PROTEIN, SERUM 5.7 g/dL (6.4-8.2)
[2024-06-01] MEDS: ALBUMIN HUMAN 25% 100 ML IV ONE (10:19)
[2024-06-01] MEDS: ALBUMIN HUMAN 25% 100 ML IV SCH (10:30)
[2024-06-01] MEDS: NIFEdipine 30 MG TABER PO SCH (12:45)
[2024-06-02] VITALS (7 sets, daily range): BP systolic 157–176; BP diastolic 65–95; PULSE 70–88; RESP 17–18; TEMP 98.2–98.7; O2SAT 94–97
[2024-06-02 07:24] LABS: EOSINOPHILS # (AUTO) 0.3 K/uL (0-0.4); EOSINOPHILS % (AUTO) 6.9 % (0.0-4.0); HEMOGLOBIN 8.8 g/dL (12.0-16.0); LYMPHOCYTES % (AUTO) 21.6 % (20.5-51.1); MEAN CORPUSCULAR HEMOGLOBIN 29 pg (27-31); MEAN CORPUSCULAR HGB CONC 33 g/dL (33-37); MEAN CORPUSCULAR VOLUME 87.8 fL (80-94); MONOCYTES # (AUTO) 0.4 K/uL (0.8-1.0); MONOCYTES % (AUTO) 7.8 % (1.7-9.3); NEUTROPHILS % (AUTO) 62.7 % (42.2-75.2); PLATELET COUNT (AUTO) 426 K/uL (140-450); RED BLOOD CELL COUNT(AUTO) 3.08 MIL/uL (4.20-5.40); RED CELL DISTRIBUTION WIDTH 15.7 % (11.6-13.7); WHITE BLOOD COUNT (AUTO) 4.8 K/uL (4.8-10.8)
[2024-06-02 07:39] LABS: ANION GAP 10.5 (8-16); CALCIUM 8.7 mg/dL (8.5-10.1); CARBON DIOXIDE 31.2 mmol/L (21-32); MAGNESIUM 2.1 mg/dL (1.8-2.4); POTASSIUM 3.7 mmol/L (3.5-5.1); TOTAL BILIRUBIN 0.6 mg/dL (0.0-1.0); TOTAL PROTEIN, SERUM 6.1 g/dL (6.4-8.2)
[2024-06-02 07:43] LABS: CREATININE 4.3 mg/dL (0.6-1.3)
[2024-06-02] MEDS: NIFEdipine 90 MG TABER PO SCH (09:37)
[2024-06-02] MEDS ORDERED: PIPERACILLIN/TAZOBACTAM 3.375 GM in DEXTROSE 5% 50 ML IV SCH (21:00)
[2024-06-02] MEDS ORDERED: AMOX-999 PO (22:31)
[2024-06-03] VITALS: BP 154/90; PULSE 78; RESP 18; TEMP 98.2; O2SAT 97
[2024-06-03 07:22] VITALS: PULSE 78; RESP 14; O2SAT 99
[2024-06-03 08:00] VITALS: BP 199/82; PULSE 81; RESP 18; TEMP 98.4; O2SAT 93; O2SAT 97
[2024-06-03 14:08] VITALS: BP 199/82; RESP 18; TEMP 98.4
[2024-06-03 16:00] VITALS: BP 175/57; PULSE 76; RESP 18; TEMP 98.5; O2SAT 95
[2024-06-03 20:00] VITALS: PULSE 83; RESP 17; RESP 18; TEMP 98.7; O2SAT 100
[2024-06-04 04:00] VITALS: BP 155/71; PULSE 72; RESP 18; TEMP 97.5; O2SAT 100
[2024-06-04 08:00] VITALS: PULSE 78; RESP 18; TEMP 98; O2SAT 100
[2024-06-04 08:43] LABS: ANION GAP 16.2 (8-16); CALCIUM 8.8 mg/dL (8.5-10.1); CARBON DIOXIDE 27.2 mmol/L (21-32); POTASSIUM 4.4 mmol/L (3.5-5.1)
[2024-06-04 08:47] LABS: CREATININE 8.4 mg/dL (0.6-1.3)
[2024-06-04] MEDS: CLONIDINE HYDROCHLORIDE 0.1 MG TAB PO PRN (10:26)
[2024-06-04 18:24] VITALS: BP 179/65; PULSE 67; RESP 18; TEMP 98
[2024-06-04] MEDS ORDERED: MEDS-TO-BEDS MC SCH (21:00)
== END 2024-06-04 18:35 | disposition home health service (06) | DRG 137 ==
LOC: MED 18:26 → MTU 20:44
PROVIDERS: ADMIT Student in an Organized Health Care Education/Training Program; ATTEND Student in an Organized Health Care Education/Training Program
PROC: 5A1D70Z Performance of Urinary Filtration, Intermittent, Less than 6 Hours Per Day (ICD-10-PCS; principal; 2024-05-29)
PROC: 5A1D70Z Performance of Urinary Filtration, Intermittent, Less than 6 Hours Per Day (ICD-10-PCS; 2024-06-01)
PROC: 5A1D70Z Performance of Urinary Filtration, Intermittent, Less than 6 Hours Per Day (ICD-10-PCS; 2024-06-04)
DX: J69.0 Pneumonitis due to inhalation of food and vomit (principal); J96.01 Acute respiratory failure with hypoxia; G93.41 Metabolic encephalopathy; I13.2 Hypertensive heart and chronic kidney disease with heart failure and with stage 5 chronic kidney disease, or end stage renal disease; R64 Cachexia; E44.1 Mild protein-calorie malnutrition; N18.6 End stage renal disease; D63.8 Anemia in other chronic diseases classified elsewhere; I50.9 Heart failure, unspecified; I16.0 Hypertensive urgency; J44.9 Chronic obstructive pulmonary disease, unspecified; Z20.822 Contact with and (suspected) exposure to COVID-19; D72.829 Elevated white blood cell count, unspecified; E78.5 Hyperlipidemia, unspecified; Z79.899 Other long term (current) drug therapy; Z99.2 Dependence on renal dialysis; Z88.8 Allergy status to other drugs, medicaments and biological substances; Z68.31 Body mass index [BMI] 31.0-31.9, adult
CPT/HCPCS: 36415; 70450; 71045; 80048; 80053; 80076; 82140; 82550; 82728; 83540; 83735; 83880; 84443; 84484; 85025; 87081; 87420; 90935; 93005; 96372; 96374; 97110; 97116; 97163-GP; 97530; 99291; G0482; J0360; J1644; J2060; J2270; J2405; J2543; J3490; J7060; P9046; Q5106

== ENCOUNTER 2024-06-18 19:30 | Emergency (ER) | payer OTHER ==
[~2024-06-18] VITALS: Ht 154.9 cm; Wt 65.8 kg
[~2024-06-18 19:30] MED LIST changes: +AMOX-999 PO
[2024-06-18 19:31] VITALS: BP 235/120; PULSE 84; RESP 11; TEMP 97.9; O2SAT 93
[2024-06-18] MEDS: NIFEdipine 30 MG TABER PO ONE (20:05)
[2024-06-18] MEDS: LORazepam 2 MG/ML VIAL IM ONE (21:12)
[2024-06-18] MEDS: carvediloL 6.25 MG TAB PO ONE (23:37)
[2024-06-19 00:45] VITALS: PULSE 77; RESP 16; O2SAT 99
[2024-06-19 01:04] VITALS: BP 203/96
== END 2024-06-19 01:55 | disposition home or self-care (01) ==
LOC: MED 19:30
DX: E11.22 Type 2 diabetes mellitus with diabetic chronic kidney disease (principal); I13.2 Hypertensive heart and chronic kidney disease with heart failure and with stage 5 chronic kidney disease, or end stage renal disease; I50.9 Heart failure, unspecified; N18.6 End stage renal disease; R51.9 Headache, unspecified; M54.2 Cervicalgia; Z99.2 Dependence on renal dialysis; J44.9 Chronic obstructive pulmonary disease, unspecified; Z79.899 Other long term (current) drug therapy; Z79.01 Long term (current) use of anticoagulants
CPT/HCPCS: 70450; 72125; 96372; 99285; J2060

== ENCOUNTER 2024-06-24 15:17 | Inpatient (IN) | payer OTHER ==
[~2024-06-24] VITALS: Ht 162.6 cm; Wt 69.0 kg
[2024-06-24 15:23] VITALS: BP 116/74; PULSE 111; RESP 20; TEMP 97.5; O2SAT 98
[2024-06-24] MEDS: LORazepam 2 MG/ML VIAL IM ONE (16:40)
[2024-06-24 16:52] LABS: BASOPHILS % (AUTO) 0.5 % (0.0-2.0); EOSINOPHILS # (AUTO) 0.2 K/uL (0-0.4); EOSINOPHILS % (AUTO) 2.3 % (0.0-4.0); HEMATOCRIT 31.8 % (36-48); HEMOGLOBIN 10.3 g/dL (12.0-16.0); LYMPHOCYTES # (AUTO) 1.4 K/uL (2.5-16.5); LYMPHOCYTES % (AUTO) 15.9 % (20.5-51.1); MEAN CORPUSCULAR HEMOGLOBIN 28 pg (27-31); MEAN CORPUSCULAR HGB CONC 33 g/dL (33-37); MEAN CORPUSCULAR VOLUME 85.6 fL (80-94); MONOCYTES # (AUTO) 0.5 K/uL (0.8-1.0); MONOCYTES % (AUTO) 5.7 % (1.7-9.3); NEUTROPHILS # (AUTO) 6.7 K/uL (1.8-7.7); NEUTROPHILS % (AUTO) 75.6 % (42.2-75.2); PLATELET COUNT (AUTO) 429 K/uL (140-450); RED BLOOD CELL COUNT(AUTO) 3.72 MIL/uL (4.20-5.40); RED CELL DISTRIBUTION WIDTH 15.3 % (11.6-13.7); WHITE BLOOD COUNT (AUTO) 8.8 K/uL (4.8-10.8)
[2024-06-24 17:06] LABS: CALCIUM 9.1 mg/dL (8.5-10.1)
[2024-06-24 17:10] LABS: CREATININE 6.7 mg/dL (0.6-1.3)
[2024-06-24 17:15] LABS: ALANINE AMINOTRANSFERASE 15 U/L (12-78); ALBUMIN 3.6 g/dL (3.4-5.0); ALCOHOL, BLOOD < 3 mg/dL (<10); ALKALINE PHOSPHATASE 92 U/L (50-136); BILIRUBIN,DIRECT 0.1 mg/dL (0.0-0.3); CREATINE KINASE, TOTAL 115 U/L (26-192); TOTAL BILIRUBIN 0.6 mg/dL (0.0-1.0); TOTAL PROTEIN, SERUM 7.2 g/dL (6.4-8.2)
[2024-06-24 17:24] LABS: ASPARTATE AMINOTRANSFERASE 15 U/L (15-37)
[2024-06-24] MEDS ORDERED: OLANZapine 10 MG VIAL IM ONE (19:54)
[2024-06-24] MEDS ORDERED: WATER STERILE 10 ML MC ONE (19:56)
[2024-06-24] MEDS: INSULIN REGULAR, HUMAN 100 UNIT/ML VIAL IV ONE (20:15)
[2024-06-24] MEDS: OLANZapine 10 MG VIAL IM ONE (20:15)
[2024-06-24] MEDS: DEXTROSE 50% 50 ML SYR IVP ONE (20:16)
[2024-06-24 22:21] LABS: APPEARANCE,URINE CLEAR (CLEAR); BILIRUBIN,URINE NEGATIVE (NEGATIVE); BLOOD, URINE TRACE-L (NEGATIVE); COLOR,URINE YELLOW (YELLOW); LEUKOCYTE ESTERASE ,URINE NEGATIVE (NEGATIVE); NITRITE, URINE NEGATIVE (NEGATIVE); PROTEIN,URINE 3+ (NEGATIVE); UGLUCOSE 1+ (NEGATIVE); UROBILINOGEN,URINE 0.2 EU/dL (0.2 - 1)
[2024-06-24 22:31] LABS: BACTERIA,URINE >30 (MANY) /HPF (None Seen); MUCUS,URINE 1+ /LPF (None Seen); RBC,URINE 0-5 /HPF (0-5); SQUAMOUS EPITHELIAL CELL,UR 4-10 (MOD) /LPF (0-3 (FEW)); WBC,URINE 0-5 /HPF (0-5)
[2024-06-24] MEDS: VANCOMYCIN 1,000 MG in DEXTROSE 5% 250 ML IV ONE (22:40)
[2024-06-24] MEDS ORDERED: HYDROcodone/APAP 5/325 MG 1 TAB TAB PO PRN (23:05)
[2024-06-24] MEDS ORDERED: MAGNESIUM OXIDE 400 MG TAB PO PRN (23:05)
[2024-06-24] MEDS ORDERED: MAG SULF 2000 MG/WATER PREMIX 50 ML IV PRN (23:05)
[2024-06-24] MEDS: CALCIUM GLUCONATE 10% 1,000 MG in NACL 0.9% 50 ML IV ONE (23:15)
[2024-06-24] MEDS: SODIUM ZIRCONIUM CYCLOSILICATE 10 GM POWD.PACK PO ONE (23:15)
[2024-06-24] MEDS ORDERED: CEFEPIME 1,000 MG VIAL ONE (23:23)
[2024-06-24 23:25] VITALS: PULSE 67; RESP 14; O2SAT 97
[2024-06-24] MEDS: ALBUTEROL 0.083% 2.5 MG/3 ML NEBU INH ONE (23:26)
[2024-06-24] MEDS: CEFEPIME 1,000 MG in DEXTROSE 5% 50 ML IV ONE (23:33)
[2024-06-24] MEDS ORDERED: VANCOMYCIN 1,000 MG VIAL ONE (23:51)
[2024-06-25] VITALS (10 sets, daily range): BP systolic 136–211; BP diastolic 62–85; PULSE 62–103; RESP 16–19; TEMP 96.6–98.2; O2SAT 96–100
[2024-06-25] MEDS: PIPERACILLIN/TAZOBACTAM 2.25 GM in DEXTROSE 5% 50 ML IV SCH ×2 (04:28→13:10)
[2024-06-25] MEDS: PIPERACILLIN/TAZOBACTAM 2.25 GM VIAL IV ONE (04:41)
[2024-06-25] MEDS ORDERED: PIPERACILLIN/TAZOBACTAM 3.375 GM in DEXTROSE 5% 50 ML IV SCH (05:00)
[2024-06-25] MEDS: CALCIUM GLUCONATE 10% 1,000 MG in NACL 0.9% 50 ML IV ONE (06:00)
[2024-06-25 06:56] LABS: BASOPHILS % (AUTO) 0.7 % (0.0-2.0); EOSINOPHILS # (AUTO) 0.2 K/uL (0-0.4); EOSINOPHILS % (AUTO) 3.7 % (0.0-4.0); HEMATOCRIT 28.2 % (36-48); HEMOGLOBIN 9.1 g/dL (12.0-16.0); LYMPHOCYTES # (AUTO) 1.2 K/uL (2.5-16.5); LYMPHOCYTES % (AUTO) 20.3 % (20.5-51.1); MEAN CORPUSCULAR HEMOGLOBIN 28 pg (27-31); MEAN CORPUSCULAR HGB CONC 32 g/dL (33-37); MEAN CORPUSCULAR VOLUME 86.2 fL (80-94); MONOCYTES # (AUTO) 0.4 K/uL (0.8-1.0); MONOCYTES % (AUTO) 6.9 % (1.7-9.3); NEUTROPHILS # (AUTO) 4.1 K/uL (1.8-7.7); NEUTROPHILS % (AUTO) 68.4 % (42.2-75.2); PLATELET COUNT (AUTO) 396 K/uL (140-450); RED BLOOD CELL COUNT(AUTO) 3.27 MIL/uL (4.20-5.40); RED CELL DISTRIBUTION WIDTH 15.4 % (11.6-13.7)
[2024-06-25 07:26] LABS: CALCIUM 8.6 mg/dL (8.5-10.1); CARBON DIOXIDE 28.6 mmol/L (21-32)
[2024-06-25 07:34] LABS: CREATININE 7.4 mg/dL (0.6-1.3); POTASSIUM 6.6 mmol/L (3.5-5.1)
[2024-06-25] MEDS ORDERED: CALCIUM GLUCONATE 10% 1,000 MG in NACL 0.9% 50 ML IV SCH (08:00)
[2024-06-25] MEDS: SODIUM ZIRCONIUM CYCLOSILICATE 10 GM POWD.PACK PO ONE (08:06)
[2024-06-25] MEDS: SODIUM ZIRCONIUM CYCLOSILICATE 10 GM POWD.PACK ONE (08:09)
[2024-06-25] MEDS: DEXTROSE 50% 50 ML SYR IVP SCH ×2 (08:59→11:39)
[2024-06-25] MEDS ORDERED: CALCIUM GLUC 1 GM/50 mL NS BAG 50 ML IV SCH (09:00)
[2024-06-25] MEDS: INSULIN LISPRO 100 UNITS/ML VIAL SUBQ SCH (09:45)
[2024-06-25] MEDS: hydrALAZINE 20 MG/ML VIAL IVP SCH (09:50)
[2024-06-25] MEDS ORDERED: PIPERACILLIN/TAZOBACTAM 2.25 GM in DEXTROSE 5% 50 ML IV SCH (11:00)
[2024-06-25] MEDS ORDERED: LORazepam 2 MG/ML VIAL IVP PRN ×2 (11:35)
[2024-06-25] MEDS: LORazepam 2 MG/ML VIAL ONE (11:40)
[2024-06-25] MEDS: DEXTROSE 5% 1,000 ML IV SCH (11:44)
[2024-06-25] MEDS: hydrALAZINE 20 MG/ML VIAL IVP PRN (12:23)
[2024-06-25] MEDS: levETIRAcetam 1,000 MG in NACL 0.9% 100 ML IV SCH (12:24)
[2024-06-25 12:40] LABS: ANION GAP 9.9 (8-16); CALCIUM 8.6 mg/dL (8.5-10.1); CARBON DIOXIDE 27.8 mmol/L (21-32); POTASSIUM 3.7 mmol/L (3.5-5.1)
[2024-06-25 13:08] LABS: BLOOD GAS BASE EXCESS -0.3 mmol/L (-2.0-3.0); BLOOD GAS HCO3 24.1 mmol/L (21.0-28.0); BLOOD GAS PCO2 38.3 mmHg (32.0-45.0); BLOOD GAS PH 7.417 (7.350-7.450)
[2024-06-25 13:09] LABS: BLOOD GAS O2 SAT% 94.5 % (94.0-98.0)
[2024-06-25 13:15] LABS: CREATININE 4.1 mg/dL (0.6-1.3)
[2024-06-25] MEDS: MEDS-TO-BEDS MC SCH (20:40)
[2024-06-26] VITALS: BP 188/55; PULSE 97; PULSE 98; RESP 18; TEMP 98.7; O2SAT 97
[2024-06-26 04:00] VITALS: BP 175/102; PULSE 95; PULSE 97; RESP 18; TEMP 98.4; O2SAT 96
[2024-06-26 06:47] LABS: BASOPHILS % (AUTO) 0.4 % (0.0-2.0); EOSINOPHILS # (AUTO) 0.1 K/uL (0-0.4); EOSINOPHILS % (AUTO) 1.6 % (0.0-4.0); HEMATOCRIT 28.2 % (36-48); HEMOGLOBIN 9.2 g/dL (12.0-16.0); LYMPHOCYTES # (AUTO) 1.5 K/uL (2.5-16.5); LYMPHOCYTES % (AUTO) 18.5 % (20.5-51.1); MEAN CORPUSCULAR HEMOGLOBIN 28 pg (27-31); MEAN CORPUSCULAR HGB CONC 33 g/dL (33-37); MEAN CORPUSCULAR VOLUME 84.9 fL (80-94); MONOCYTES # (AUTO) 0.5 K/uL (0.8-1.0); MONOCYTES % (AUTO) 6.6 % (1.7-9.3); NEUTROPHILS # (AUTO) 5.8 K/uL (1.8-7.7); NEUTROPHILS % (AUTO) 72.9 % (42.2-75.2); PLATELET COUNT (AUTO) 400 K/uL (140-450); RED BLOOD CELL COUNT(AUTO) 3.33 MIL/uL (4.20-5.40); RED CELL DISTRIBUTION WIDTH 15.5 % (11.6-13.7)
[2024-06-26 07:09] LABS: ANION GAP 15.5 (8-16); CALCIUM 8.5 mg/dL (8.5-10.1); CARBON DIOXIDE 24.8 mmol/L (21-32); POTASSIUM 4.3 mmol/L (3.5-5.1)
[2024-06-26 07:30] LABS: CREATININE 5.4 mg/dL (0.6-1.3)
[2024-06-26 08:00] VITALS: BP_SYST 220; BP_DIAS 197; BP_DIAS 97; PULSE 70; PULSE 96; RESP 18; RESP 19; TEMP 99.9; O2SAT 97
[2024-06-26] MEDS: cloNIDine-TTS1 0.1 MG/24 HR 1 EA PATCH TD SCH (08:40)
[2024-06-26 12:00] VITALS: BP 188/94; PULSE 98; RESP 20; TEMP 98.9; O2SAT 97
[2024-06-26] MEDS: hydrALAZINE 20 MG/ML VIAL IVP PRN (13:31)
[2024-06-26 16:00] VITALS: BP 201/81; PULSE 100; RESP 18; TEMP 98.1; O2SAT 97
[2024-06-26 20:00] VITALS: BP 185/81; PULSE 98; PULSE 99; RESP 18; TEMP 98.7; O2SAT 98
[2024-06-27] VITALS: BP 134/56; PULSE 74; PULSE 95; RESP 18; TEMP 97.6; O2SAT 97
[2024-06-27 04:00] VITALS: BP 190/86; PULSE 85; PULSE 88; RESP 18; TEMP 98.3; O2SAT 95
[2024-06-27 05:23] LABS: BASOPHILS % (AUTO) 0.5 % (0.0-2.0); EOSINOPHILS # (AUTO) 0.2 K/uL (0-0.4); EOSINOPHILS % (AUTO) 2.9 % (0.0-4.0); HEMATOCRIT 26.5 % (36-48); HEMOGLOBIN 8.7 g/dL (12.0-16.0); LYMPHOCYTES # (AUTO) 1.4 K/uL (2.5-16.5); LYMPHOCYTES % (AUTO) 23.6 % (20.5-51.1); MEAN CORPUSCULAR HEMOGLOBIN 28 pg (27-31); MEAN CORPUSCULAR HGB CONC 33 g/dL (33-37); MEAN CORPUSCULAR VOLUME 83.9 fL (80-94); MONOCYTES # (AUTO) 0.5 K/uL (0.8-1.0); MONOCYTES % (AUTO) 8.3 % (1.7-9.3); NEUTROPHILS # (AUTO) 3.9 K/uL (1.8-7.7); NEUTROPHILS % (AUTO) 64.7 % (42.2-75.2); PLATELET COUNT (AUTO) 368 K/uL (140-450); RED BLOOD CELL COUNT(AUTO) 3.16 MIL/uL (4.20-5.40); WHITE BLOOD COUNT (AUTO) 6.1 K/uL (4.8-10.8)
[2024-06-27 06:16] LABS: ANION GAP 16.7 (8-16); CALCIUM 8.4 mg/dL (8.5-10.1); CARBON DIOXIDE 23.1 mmol/L (21-32); POTASSIUM 3.8 mmol/L (3.5-5.1)
[2024-06-27 06:18] LABS: CREATININE 6.7 mg/dL (0.6-1.3)
[2024-06-27] MEDS: levETIRAcetam 1,000 MG in NACL 0.9% 100 ML IV SCH (09:21)
[2024-06-27 11:33] VITALS: O2SAT 97
[2024-06-27 20:00] VITALS: BP 202/108; PULSE 94; RESP 17; RESP 18; TEMP 98.3; O2SAT 98
[2024-06-28] VITALS (8 sets, daily range): BP systolic 147–227; BP diastolic 56–101; PULSE 71–99; RESP 16–19; TEMP 97.4–98.2; O2SAT 96–98
[2024-06-28 05:27] LABS: BASOPHILS % (AUTO) 0.7 % (0.0-2.0); EOSINOPHILS # (AUTO) 0.2 K/uL (0-0.4); EOSINOPHILS % (AUTO) 3.5 % (0.0-4.0); HEMATOCRIT 28.4 % (36-48); HEMOGLOBIN 9.5 g/dL (12.0-16.0); LYMPHOCYTES # (AUTO) 1.1 K/uL (2.5-16.5); LYMPHOCYTES % (AUTO) 21.5 % (20.5-51.1); MEAN CORPUSCULAR HEMOGLOBIN 28 pg (27-31); MEAN CORPUSCULAR HGB CONC 34 g/dL (33-37); MEAN CORPUSCULAR VOLUME 82.9 fL (80-94); MONOCYTES # (AUTO) 0.5 K/uL (0.8-1.0); MONOCYTES % (AUTO) 9.2 % (1.7-9.3); NEUTROPHILS # (AUTO) 3.5 K/uL (1.8-7.7); NEUTROPHILS % (AUTO) 65.1 % (42.2-75.2); PLATELET COUNT (AUTO) 387 K/uL (140-450); RED BLOOD CELL COUNT(AUTO) 3.43 MIL/uL (4.20-5.40); RED CELL DISTRIBUTION WIDTH 14.9 % (11.6-13.7); WHITE BLOOD COUNT (AUTO) 5.3 K/uL (4.8-10.8)
[2024-06-28 06:16] LABS: ANION GAP 15.1 (8-16); CALCIUM 8.6 mg/dL (8.5-10.1); CARBON DIOXIDE 26.6 mmol/L (21-32); POTASSIUM 3.7 mmol/L (3.5-5.1)
[2024-06-28 06:22] LABS: CREATININE 4.9 mg/dL (0.6-1.3)
[2024-06-28] MEDS ORDERED: LABETALOL 20 MG/4 ML VIAL IVP ONE (09:30)
[2024-06-28] MEDS: ACETAMINOPHEN 325 MG TAB PO PRN (09:49)
[2024-06-28] MEDS: cloNIDine-TTS2 0.2 MG/24 HR 1 EA PATCH TD SCH (09:50)
[2024-06-28] MEDS: LABETALOL 20 MG/4 ML VIAL IVP PRN (12:05)
[2024-06-28] MEDS: hydrALAZINE 25 MG TAB PO SCH (16:14)
[2024-06-28] MEDS: SEVELAMER CARBONATE 800 MG TAB PO SCH (16:14)
[2024-06-28] MEDS: carvediloL 12.5 MG TAB PO SCH (20:15)
[2024-06-28] MEDS: MORPHINE SULFATE 4 MG/ML SYR IVP PRN (23:28)
[2024-06-28] MEDS: ONDANSETRON 4 MG/2 ML VIAL IVP PRN (23:29)
[2024-06-29] VITALS: BP 183/75; PULSE 68; PULSE 81; RESP 16; TEMP 98.9; O2SAT 94
[2024-06-29 04:00] VITALS: BP 108/63; PULSE 62; PULSE 65; RESP 17; TEMP 97.5; O2SAT 96
[2024-06-29 06:12] LABS: BASOPHILS % (AUTO) 0.9 % (0.0-2.0); EOSINOPHILS # (AUTO) 0.3 K/uL (0-0.4); HEMATOCRIT 25.3 % (36-48); HEMOGLOBIN 8.5 g/dL (12.0-16.0); LYMPHOCYTES # (AUTO) 1.6 K/uL (2.5-16.5); LYMPHOCYTES % (AUTO) 30.7 % (20.5-51.1); MEAN CORPUSCULAR HEMOGLOBIN 28 pg (27-31); MEAN CORPUSCULAR HGB CONC 34 g/dL (33-37); MEAN CORPUSCULAR VOLUME 82.8 fL (80-94); MONOCYTES # (AUTO) 0.5 K/uL (0.8-1.0); MONOCYTES % (AUTO) 9.5 % (1.7-9.3); NEUTROPHILS # (AUTO) 2.8 K/uL (1.8-7.7); NEUTROPHILS % (AUTO) 53.9 % (42.2-75.2); PLATELET COUNT (AUTO) 390 K/uL (140-450); RED BLOOD CELL COUNT(AUTO) 3.06 MIL/uL (4.20-5.40); RED CELL DISTRIBUTION WIDTH 14.4 % (11.6-13.7); WHITE BLOOD COUNT (AUTO) 5.2 K/uL (4.8-10.8)
[2024-06-29 06:54] LABS: ANION GAP 16.2 (8-16); CARBON DIOXIDE 24.8 mmol/L (21-32)
[2024-06-29 08:00] VITALS: BP 198/82; PULSE 68; PULSE 72; RESP 16; TEMP 97.5; O2SAT 96
[2024-06-29] MEDS: NIFEdipine 60 MG TABER PO SCH (08:29)
[2024-06-29 12:00] VITALS: BP 202/93; PULSE 65; PULSE 66; RESP 16; TEMP 98.1; O2SAT 98
[2024-06-29 16:00] VITALS: BP 143/65; PULSE 70; PULSE 80; RESP 20; TEMP 98.2; O2SAT 98
[2024-06-29 20:00] VITALS: BP 170/66; PULSE 76; RESP 18; TEMP 98; O2SAT 96
[2024-06-30] VITALS: BP 158/76; PULSE 60; PULSE 68; RESP 19; TEMP 96.9; O2SAT 100
[2024-06-30 04:00] VITALS: BP 141/50; PULSE 58; PULSE 73; RESP 19; TEMP 97.2; O2SAT 100
[2024-06-30 08:00] VITALS: BP 169/70; PULSE 72; PULSE 73; RESP 18; TEMP 97.3; O2SAT 96
[2024-06-30 12:00] VITALS: BP 153/61; PULSE 70; PULSE 72; RESP 18; TEMP 98.1; O2SAT 99
[2024-06-30 16:00] VITALS: BP 130/56; PULSE 67; PULSE 69; RESP 18; TEMP 97.9; O2SAT 96
[2024-06-30] MEDS: hydrALAZINE 25 MG TAB PO SCH (17:30)
[2024-06-30 20:00] VITALS: BP 129/58; PULSE 68; RESP 19; TEMP 98.7; O2SAT 96
[2024-06-30] MEDS: levETIRAcetam 500 MG TAB PO SCH (20:36)
[2024-07-01] VITALS (7 sets, daily range): BP systolic 147–202; BP diastolic 59–82; PULSE 58–70; RESP 18–19; TEMP 97.2–98.7; O2SAT 94–100
[2024-07-01 11:18] LABS: BASOPHILS % (AUTO) 0.9 % (0.0-2.0); EOSINOPHILS # (AUTO) 0.2 K/uL (0-0.4); EOSINOPHILS % (AUTO) 3.9 % (0.0-4.0); HEMATOCRIT 23.5 % (36-48); HEMOGLOBIN 7.8 g/dL (12.0-16.0); LYMPHOCYTES # (AUTO) 1.3 K/uL (2.5-16.5); LYMPHOCYTES % (AUTO) 26.3 % (20.5-51.1); MEAN CORPUSCULAR HEMOGLOBIN 28 pg (27-31); MEAN CORPUSCULAR HGB CONC 33 g/dL (33-37); MEAN CORPUSCULAR VOLUME 82.9 fL (80-94); MONOCYTES # (AUTO) 0.3 K/uL (0.8-1.0); MONOCYTES % (AUTO) 7.1 % (1.7-9.3); NEUTROPHILS # (AUTO) 3.1 K/uL (1.8-7.7); NEUTROPHILS % (AUTO) 61.8 % (42.2-75.2); PLATELET COUNT (AUTO) 370 K/uL (140-450); RED BLOOD CELL COUNT(AUTO) 2.83 MIL/uL (4.20-5.40); RED CELL DISTRIBUTION WIDTH 15.2 % (11.6-13.7); WHITE BLOOD COUNT (AUTO) 4.9 K/uL (4.8-10.8)
[2024-07-01] MEDS ORDERED: KEP500 PO (11:29)
[2024-07-01 11:36] LABS: ANION GAP 16.7 (8-16); CARBON DIOXIDE 23.2 mmol/L (21-32); POTASSIUM 3.9 mmol/L (3.5-5.1)
[2024-07-01 11:41] LABS: CREATININE 6.2 mg/dL (0.6-1.3)
[2024-07-02] MEDS ORDERED: CLONIDINE HYDROCHLORIDE 0.1 MG TAB PO PRN (03:00)
[2024-07-02] MEDS: CLONIDINE HYDROCHLORIDE 0.1 MG TAB PO PRN (03:40)
[2024-07-02 04:00] VITALS: BP 185/76; PULSE 66; RESP 18; TEMP 97.4; O2SAT 95
[2024-07-02 07:19] LABS: ALBUMIN 2.3 g/dL (3.4-5.0); ANION GAP 17.5 (8-16); CALCIUM 8.2 mg/dL (8.5-10.1); CARBON DIOXIDE 22.9 mmol/L (21-32); PHOSPHORUS 6.9 mg/dL (2.5-4.9); POTASSIUM 4.4 mmol/L (3.5-5.1); TOTAL BILIRUBIN 0.3 mg/dL (0.0-1.0); TOTAL PROTEIN, SERUM 5.6 g/dL (6.4-8.2)
[2024-07-02 08:00] VITALS: PULSE 66; RESP 18; O2SAT 95
[2024-07-02] MEDS: LOSARTAN 25 MG TAB PO SCH (15:26)
[2024-07-02 20:00] VITALS: BP 148/66; PULSE 78; RESP 18; TEMP 98.8; O2SAT 98
[2024-07-03 04:00] VITALS: BP 132/77; PULSE 70; RESP 18; TEMP 98; O2SAT 98
[2024-07-03 06:57] LABS: ALBUMIN 2.5 g/dL (3.4-5.0); ANION GAP 13.6 (8-16); CALCIUM 8.4 mg/dL (8.5-10.1); CARBON DIOXIDE 27.7 mmol/L (21-32); PHOSPHORUS 5.1 mg/dL (2.5-4.9); POTASSIUM 4.3 mmol/L (3.5-5.1); TOTAL BILIRUBIN 0.3 mg/dL (0.0-1.0); TOTAL PROTEIN, SERUM 5.9 g/dL (6.4-8.2)
[2024-07-03 08:00] VITALS: BP 211/85; PULSE 74; RESP 18; TEMP 98.7; O2SAT 94
[2024-07-03 20:00] VITALS: BP 155/61; PULSE 70; RESP 18; TEMP 97.3; O2SAT 97
[2024-07-04 04:00] VITALS: BP 134/83; PULSE 71; RESP 18; TEMP 97.9; O2SAT 97
[2024-07-04 05:15] LABS: BASOPHILS % (AUTO) 0.8 % (0.0-2.0); EOSINOPHILS # (AUTO) 0.1 K/uL (0-0.4); EOSINOPHILS % (AUTO) 2.7 % (0.0-4.0); HEMATOCRIT 24.2 % (36-48); HEMOGLOBIN 8.1 g/dL (12.0-16.0); LYMPHOCYTES # (AUTO) 1.3 K/uL (2.5-16.5); LYMPHOCYTES % (AUTO) 31.6 % (20.5-51.1); MEAN CORPUSCULAR HEMOGLOBIN 28 pg (27-31); MEAN CORPUSCULAR HGB CONC 34 g/dL (33-37); MEAN CORPUSCULAR VOLUME 83.2 fL (80-94); MONOCYTES # (AUTO) 0.3 K/uL (0.8-1.0); NEUTROPHILS # (AUTO) 2.4 K/uL (1.8-7.7); NEUTROPHILS % (AUTO) 56.9 % (42.2-75.2); PLATELET COUNT (AUTO) 402 K/uL (140-450); RED CELL DISTRIBUTION WIDTH 15.4 % (11.6-13.7); WHITE BLOOD COUNT (AUTO) 4.2 K/uL (4.8-10.8)
[2024-07-04 06:25] LABS: ANION GAP 13.8 (8-16); CALCIUM 8.8 mg/dL (8.5-10.1); CARBON DIOXIDE 27.7 mmol/L (21-32); POTASSIUM 4.5 mmol/L (3.5-5.1)
[2024-07-04 06:45] LABS: CREATININE 6.1 mg/dL (0.6-1.3)
[2024-07-04 08:00] VITALS: BP 220/75; PULSE 69; RESP 20; TEMP 98.9; O2SAT 97
[2024-07-04 16:00] VITALS: BP 114/63; PULSE 70; RESP 20; TEMP 98.9; O2SAT 97
[2024-07-04 20:00] VITALS: PULSE 73; RESP 20; O2SAT 96
[2024-07-04 21:19] VITALS: BP 190/78; PULSE 73
== END 2024-07-04 23:59 | disposition still patient (30) | DRG 70 ==
LOC: MED 15:17 → MTU 23:05
PROVIDERS: ADMIT Student in an Organized Health Care Education/Training Program; ATTEND Student in an Organized Health Care Education/Training Program
PROC: 5A1D70Z Performance of Urinary Filtration, Intermittent, Less than 6 Hours Per Day (ICD-10-PCS; principal; 2024-06-25)
PROC: 5A1D70Z Performance of Urinary Filtration, Intermittent, Less than 6 Hours Per Day (ICD-10-PCS; 2024-06-27)
PROC: 5A1D70Z Performance of Urinary Filtration, Intermittent, Less than 6 Hours Per Day (ICD-10-PCS; 2024-06-29)
PROC: 5A1D70Z Performance of Urinary Filtration, Intermittent, Less than 6 Hours Per Day (ICD-10-PCS; 2024-07-02)
PROC: 5A1D70Z Performance of Urinary Filtration, Intermittent, Less than 6 Hours Per Day (ICD-10-PCS; 2024-07-04)
DX: G93.41 Metabolic encephalopathy (principal); A41.9 Sepsis, unspecified organism; J96.01 Acute respiratory failure with hypoxia; N18.6 End stage renal disease; R53.2 Functional quadriplegia; N39.0 Urinary tract infection, site not specified; E87.1 Hypo-osmolality and hyponatremia; I12.0 Hypertensive chronic kidney disease with stage 5 chronic kidney disease or end stage renal disease; G40.89 Other seizures; J81.1 Chronic pulmonary edema; I16.0 Hypertensive urgency; D63.8 Anemia in other chronic diseases classified elsewhere; E87.5 Hyperkalemia; E16.2 Hypoglycemia, unspecified; E83.39 Other disorders of phosphorus metabolism; Z99.2 Dependence on renal dialysis; Z79.899 Other long term (current) drug therapy; Z88.8 Allergy status to other drugs, medicaments and biological substances
CPT/HCPCS: 36415; 36600; 70450; 71045; 80048; 80053; 80076; 81001; 82550; 82803; 82948; 84100; 84484; 85025; 87081; 87086; 87186; 92526; 93005; 94640; 97110; 97163-GP; 97530; 99285; G0482; J0360; J0610; J0692; J0696; J1644; J1815; J1953; J2060; J2270; J2405; J2543; J3370; J3490; J7060; J7613; Q0092